=== PATIENT | female | born 1955 | race Caucasian/White ===

== ENCOUNTER 2020-01-29 09:38 | Outpatient (REF) | payer MEDICARE, MEDICAID, SELFPAY ==
[2020-01-29 11:37] LABS: Hematocrit 43.4 % (37-47); Hemoglobin 14.5 g/dl (12.0-16.0); Mean Corpuscular HGB Conc 33.4 g/dl (31.0-35.0); Mean Corpuscular Hemoglobin 31.7 pg (27.0-33.0); Mean Corpuscular Volume 94.8 fL (80-98); Platelet Count 285 X10*3/uL (160-400); Red Blood Count 4.58 X10*6/uL (4.20-5.50); Red Cell Distribution Width 12.3 % (11.0-16.0); White Blood Count 6.4 X10*3/uL (4.8-10.8)
[2020-01-29 11:56] LABS: Anion Gap 14 (12-20); Blood Urea Nitrogen 19 mg/dL (9-16); Calcium 9.9 mg/dL (8.4-10.2); Carbon Dioxide 29 mmol/L (22-29); Chloride 104 mmol/L (96-108); Cholesterol 184 mg/dL; Estimated Glomerular Filt Rate > 60; Glucose Fasting 101 mg/dL (60-99); HDL Cholesterol 57 mg/dL; LDL Cholesterol Calculated 105 mg/dl; Potassium 4.9 mmol/l (3.3-5.1); Sodium 142 mmol/L (135-145); Triglycerides 111 mg/dL
[2020-01-29 12:12] LABS: TSH reflex Free T4 1.67 mIU/mL (0.32-4.0); Vitamin D 25-OH Total 33.4 ng/mL (>30)
== END 2020-01-29 09:39 | disposition home or self-care (01) ==
LOC: HO.HMGCLDS 09:38
PROVIDERS: PCP Nurse Practitioner Family; Visit Provider Nurse Practitioner Family
DX: Z00.00 Encounter for general adult medical examination without abnormal findings (principal); G89.29 Other chronic pain; M25.561 Pain in right knee
CPT/HCPCS: 36415; 80048; 80061; 82306; 84443; 85027

== ENCOUNTER 2020-03-08 11:26 | Outpatient (REF) | payer MEDICARE, MEDICAID, SELFPAY ==
--- NOTE | 2020-03-08 11:35 | XR_ITS ---
EXAMINATION: XR KNEE, BILATERAL XR KNEE, RIGHT CLINICAL INFORMATION: Pain in right knee COMPARISON: 05/03/2019 TECHNIQUE: AP standing view of both knees. Lateral and sunrise views of the right knee. FINDINGS: Right knee: No fracture or subluxation. Mild medial compartment joint space narrowing. Small marginal osteophytes of the medial and patellofemoral compartments. This is similar to the previous study.There may be a small joint effusion. Left knee: No fracture or subluxation. Mild medial compartment narrowing noted. XR/XR knee RT 2V IMPRESSION: Mild degenerative changes at the medial and patellofemoral compartments of the right knee. There may be a small joint effusion.
--- NOTE | 2020-03-08 11:35 | XR_ITS ---
EXAMINATION: XR KNEE, BILATERAL XR KNEE, RIGHT CLINICAL INFORMATION: Pain in right knee COMPARISON: 05/03/2019 TECHNIQUE: AP standing view of both knees. Lateral and sunrise views of the right knee. FINDINGS: Right knee: No fracture or subluxation. Mild medial compartment joint space narrowing. Small marginal osteophytes of the medial and patellofemoral compartments. This is similar to the previous study.There may be a small joint effusion. Left knee: No fracture or subluxation. Mild medial compartment narrowing noted. XR/XR knee standing BI IMPRESSION: Mild degenerative changes at the medial and patellofemoral compartments of the right knee. There may be a small joint effusion.
== END 2020-03-08 11:27 | disposition home or self-care (01) ==
LOC: HO.HOSX 11:26
PROVIDERS: PCP Nurse Practitioner Family; Referring Provider Nurse Practitioner Family; Visit Provider Orthopaedic Surgery
DX: M25.561 Pain in right knee (principal); M25.562 Pain in left knee; I10 Essential (primary) hypertension
CPT/HCPCS: 73560; 73565; 99202

== ENCOUNTER 2020-05-10 12:26 | Outpatient (REF) | payer MEDICARE, MEDICAID, SELFPAY ==
--- NOTE | 2020-05-10 12:31 | MM_ITS ---
EXAMINATION: MM SCREENING DIGITAL BREAST TOMOSYNTHESIS, BILATERAL CLINICAL INFORMATION: Screening. Asymptomatic. The lifetime risk of breast cancer based on the Tyrer-Cuzick Model is 2%. COMPARISON: Mammography: 09/14/2018, 08/21/2017, 08/17/2016 TECHNIQUE: Digital breast tomosynthesis is performed in both the craniocaudal and mediolateral oblique views along with computer-aided detection (CAD). Synthesized 2D images are generated from the tomosynthesis. FINDINGS: There are scattered areas of fibroglandular density (ACR BI-RADS breast composition Category b). There are no significant masses, abnormal calcifications, or other abnormalities. Parenchymal pattern is similar to prior studies. No significant changes. MM/MM tomosynthesis screening BI IMPRESSION: No mammographic evidence of malignancy. ASSESSMENT: BI-RADS 1: Negative RECOMMENDATION: Routine annual mammography screening. This patient's information was entered into a reminder system with a target due date for their next mammogram.
== END 2020-05-10 12:27 | disposition home or self-care (01) ==
LOC: HO.MAMMO 12:26
PROVIDERS: PCP Nurse Practitioner Family; Visit Provider Nurse Practitioner Family
DX: Z12.31 Encounter for screening mammogram for malignant neoplasm of breast (principal)
CPT/HCPCS: 77063; 77067

== ENCOUNTER → 2020-07-24 11:16 | Outpatient (BNVA) | payer MEDICARE, MEDICAID, SELFPAY | PROVIDERS: PCP Nurse Practitioner Family; Visit Provider Urology | DX: N13.5 Crossing vessel and stricture of ureter without hydronephrosis (principal); N32.81 Overactive bladder | CPT/HCPCS: 81002; 99212 ==

== ENCOUNTER 2020-08-14 11:12 | Outpatient (REF) | payer MEDICARE, MEDICAID, SELFPAY ==
[2020-08-14 14:21] LABS: Alanine Aminotransferase 22 U/L (0-31); Albumin Level 4.4 g/dL (3.5-5.0); Alkaline Phosphatase 85 U/L (39-117); Anion Gap 15 (12-20); Aspartate Amino Transferase 20 U/L (5-31); Bilirubin Total 0.7 mg/dL (0.0-1.0); Blood Urea Nitrogen 19 mg/dL (9-16); Calcium 9.5 mg/dL (8.4-10.2); Carbon Dioxide 24 mmol/L (22-29); Chloride 105 mmol/L (96-108); Cholesterol 152 mg/dL; Estimated Glomerular Filt Rate > 60; Glucose Fasting 96 mg/dL (60-99); HDL Cholesterol 54 mg/dL; LDL Cholesterol Calculated 83 mg/dl; Potassium 4.4 mmol/L (3.3-5.1); Sodium 140 mmol/L (135-145); Total Protein 7.1 g/dL (6.5-8.0); Triglycerides 78 mg/dL
== END 2020-08-14 11:13 | disposition home or self-care (01) ==
LOC: HO.HMGCLDS 11:12
PROVIDERS: PCP Nurse Practitioner Family; Visit Provider Nurse Practitioner Family
DX: I10 Essential (primary) hypertension (principal)
CPT/HCPCS: 36415; 80053; 80061

== ENCOUNTER → 2020-11-07 10:19 | Outpatient (BNVA) | payer MEDICARE, MEDICAID, SELFPAY | PROVIDERS: PCP Nurse Practitioner Family; Visit Provider Obstetrics & Gynecology ==

== ENCOUNTER → 2020-12-12 10:13 | Outpatient (BNVA) | payer MEDICARE, MEDICAID, SELFPAY | PROVIDERS: PCP Nurse Practitioner Family; Visit Provider Advanced Practice Midwife | DX: S30.814A Abrasion of vagina and vulva, initial encounter (principal); W01.0XXA Fall on same level from slipping, tripping and stumbling without subsequent striking against object, initial encounter; Y93.9 Activity, unspecified; Y92.9 Unspecified place or not applicable; Y99.8 Other external cause status; Z88.8 Allergy status to other drugs, medicaments and biological substances; I10 Essential (primary) hypertension; Z91.018 Allergy to other foods | CPT/HCPCS: 99202; 99212 ==

== ENCOUNTER → 2021-01-09 13:04 | Outpatient (REF) | payer MEDICARE, MEDICAID, SELFPAY ==
--- NOTE | ~2021-01-09 | NM_ITS ---
EXAMINATION: NM KIDNEY IMAGING CLINICAL INFORMATION: Postsurgical changes right kidney with mild distended right collecting system. COMPARISON: CT abdomen and pelvis 12/04/2019. TECHNIQUE: Following intravenous administration of 10 mCi of Tc-99m DTPA, imaging over the posterior abdomen was obtained up to 30 minutes. At 30 minutes, 38 mg of Lasix was injected intravenously and further imaging was obtained up to an additional 29 minutes. FINDINGS: There is normal symmetrical perfusion seen on the 2 second per frame images up to 32 seconds. There is normal bilateral cortical uptake with progressive isotope accumulation in the right kidney pelvis. There is normal excretion of isotope in the left kidney. Post Lasix, there is slow excretion of activity within the right kidney pelvis with no obstruction. The left kidney excreted normally prior to Lasix. On the renogram curves, the split function is right kidney 34.6% and the left kidney 65.4%. Time from Lasix to half Lasix left kidney is 4.9 minutes and the right kidney is 12.4 minutes suggestive of slow excretion on the right but no obstruction. NM/NM renal flow w pharm int IMPRESSION: Normal bilateral renal perfusion. There is normal cortical uptake and excretion from the left kidney. Slight diminished right cortical uptake with slow progressive renal pelvic activity with mild dilation. Post Lasix, there is slow excretion of the right kidney isotope activity from the kidney pelvis without obstruction. Right kidney function is 34.6% and the left kidney function is 65.4%.
== END ==
LOC: HO.NUCMED 13:04
PROVIDERS: PCP Nurse Practitioner Family; Visit Provider Urology
DX: N13.5 Crossing vessel and stricture of ureter without hydronephrosis (principal)
CPT/HCPCS: 78708; A9539; J1940

== ENCOUNTER → 2021-01-22 11:14 | Outpatient (BNVA) | payer MEDICARE, MEDICAID, SELFPAY | PROVIDERS: PCP Nurse Practitioner Family | DX: N13.5 Crossing vessel and stricture of ureter without hydronephrosis (principal); N32.81 Overactive bladder | CPT/HCPCS: 51798; 99212 ==

== ENCOUNTER → 2021-04-04 15:24 | Outpatient (BNVA) | payer MEDICARE, MEDICAID, SELFPAY | PROVIDERS: PCP Nurse Practitioner Family | DX: N13.5 Crossing vessel and stricture of ureter without hydronephrosis (principal); N32.81 Overactive bladder | CPT/HCPCS: Q3014 ==

== ENCOUNTER 2021-06-04 11:22 | Outpatient (REF) | payer MEDICARE, MEDICAID, SELFPAY ==
--- NOTE | ~2021-06-04 | MM_ITS ---
EXAMINATION: MM SCREENING DIGITAL BREAST TOMOSYNTHESIS, BILATERAL CLINICAL INFORMATION: Screening. Asymptomatic. The lifetime risk of breast cancer based on the Tyrer-Cuzick Model is 2%. COMPARISON: Mammography: 05/10/2020, 09/14/2018, 08/21/2017 TECHNIQUE: Digital breast tomosynthesis is performed in both the craniocaudal and mediolateral oblique views along with computer-aided detection (CAD). Synthesized 2D images are generated from the tomosynthesis. FINDINGS: There are scattered areas of fibroglandular density (ACR BI-RADS breast composition Category b). There are no significant masses, abnormal calcifications, or other abnormalities. Parenchymal pattern is similar to prior studies. There is no developing density or architectural abnormality. The axilla and skin contours are unremarkable. No significant changes. MM/MM tomosynthesis screening BI IMPRESSION: No mammographic evidence of malignancy. ASSESSMENT: BI-RADS 1: Negative RECOMMENDATION: Routine annual mammography screening. This patient's information was entered into a reminder system with a target due date for their next mammogram.
== END 2021-06-04 11:23 | disposition home or self-care (01) ==
LOC: HO.MAMMO 11:22
PROVIDERS: PCP Nurse Practitioner Family; Visit Provider Nurse Practitioner Family
DX: Z12.31 Encounter for screening mammogram for malignant neoplasm of breast (principal)
CPT/HCPCS: 77063; 77067

== ENCOUNTER 2021-07-29 13:33 | Outpatient (REF) | payer MEDICARE, MEDICAID, SELFPAY ==
--- NOTE | ~2021-07-29 | XR_ITS ---
EXAMINATION: XR KNEE, LEFT CLINICAL INFORMATION: Sprain of left knee. Pain COMPARISON: None TECHNIQUE: Four views of the left knee. FINDINGS: Bones and soft tissues are normal. No fracture or joint effusion. Alignment is anatomic. Joint spaces are well maintained. No abnormal soft tissue calcification. XR/XR knee LT 4V IMPRESSION: Unremarkable left knee.
== END 2021-07-29 13:34 | disposition home or self-care (01) ==
LOC: HO.HMGCX 13:33
PROVIDERS: Visit Provider Internal Medicine
DX: S83.92XA Sprain of unspecified site of left knee, initial encounter (principal)
CPT/HCPCS: 73564

== ENCOUNTER 2021-10-29 09:58 | Outpatient (REF) | payer MEDICARE, MEDICAID, SELFPAY ==
[2021-10-29 11:35] LABS: MANUAL DIFF FLAG NO
[2021-10-29 11:40] LABS: Basophils Percent Auto 0.2 % (0-2); Eosinophils Absolute Auto 0.2 X10*3/uL (0.0-0.4); Hematocrit 45.8 % (37.0-47.0); Hemoglobin 15.2 g/dl (12.0-16.0); Lymphocytes Absolute Auto 4.2 X10*3/uL (1.2-4.9); Lymphocytes Percent Auto 40.3 % (20-40); Mean Corpuscular HGB Conc 33.2 g/dl (31.0-35.0); Mean Corpuscular Hemoglobin 30.9 pg (27.0-33.0); Mean Corpuscular Volume 93.1 fL (80.0-98.0); Mean Platelet Volume 9.4 fL (9.4-12.3); Monocytes Percent Auto 9.8 % (2-11); Neutrophils Absolute Auto 4.9 x10*3/uL (2.0-8.3); Neutrophils Percent Auto 46.7 % (45-73); Platelet Count 345 X10*3/uL (160-400); Red Blood Count 4.92 X10*6/uL (4.20-5.50); Red Cell Distribution Width 12.7 % (11.0-16.0); White Blood Count 10.4 X10*3/uL (4.8-10.8)
[2021-10-29 11:57] LABS: Alanine Aminotransferase 27 U/L (0-31); Albumin Level 4.7 g/dL (3.5-5.0); Alkaline Phosphatase 94 U/L (39-117); Anion Gap 14 (12-20); Aspartate Amino Transferase 14 U/L (5-31); Bilirubin Total 0.6 mg/dL (0.0-1.0); Blood Urea Nitrogen 24 mg/dL (9-16); Calcium 9.9 mg/dL (8.4-10.2); Carbon Dioxide 25 mmol/L (22-29); Chloride 105 mmol/L (96-108); Cholesterol 171 mg/dL; Estimated Glomerular Filt Rate > 60; Glucose Fasting 109 mg/dL (60-99); HDL Cholesterol 55 mg/dL; LDL Cholesterol Calculated 89 mg/dl; Potassium 4.6 mmol/L (3.3-5.1); Sodium 139 mmol/L (135-145); Total Protein 7.6 g/dL (6.5-8.0); Triglycerides 139 mg/dL
[2021-10-29 12:25] LABS: TSH reflex Free T4 2.08 uIU/mL (0.32-4.0); Vitamin D 25-OH Total 38.8 ng/mL (>30)
== END 2021-10-29 09:59 | disposition home or self-care (01) ==
LOC: HO.HMGCLDS 09:58
PROVIDERS: Visit Provider Nurse Practitioner Family
DX: Z00.00 Encounter for general adult medical examination without abnormal findings (principal); Z78.0 Asymptomatic menopausal state
CPT/HCPCS: 36415; 80053; 80061; 82306; 84443; 85025

== ENCOUNTER 2021-11-14 10:25 | Outpatient (REF) | payer MEDICARE, MEDICAID, SELFPAY ==
--- NOTE | ~2021-11-14 | MM_ITS ---
EXAMINATION: BONE DENSITOMETRY CLINICAL INDICATION: Asymptomatic menopausal state. COMPARISON: Previous BD dated 04/16/2016 and baseline BD dated 03/02/2008. TECHNIQUE: Using a GENELINK DXA System (software version: 13.1) manufactured by [employer], dual-energy x-ray absorptiometry was performed of the lumbar spine and left hip. The images are of good technical quality. Summary results are attached. FINDINGS: AP SPINE L1-L3 (excluding L4): The data of L1-L4 has been changed to exclude the L4 vertebral body, because degenerative sclerosis at this level may cause overestimation of lumbar spine density. Current: BMD 1.247 g/cm2, Z-score 1.8, T-score 0.6, normal, 3.6% increase from previous, 6.1% increase from baseline (<5% change is not significant). Prior: BMD 1.204 g/cm2. Baseline: BMD 1.175 g/cm2. LEFT FEMUR, NECK: Current: BMD 0.923 g/cm2, Z-score 0.4, T-score -0.8, normal. Prior: BMD 0.869 g/cm2. Baseline: BMD 0.836 g/cm2. LEFT FEMUR, TOTAL: Current: BMD 1.074 g/cm2, Z-score 1.4, T-score 0.5, normal, 9.4% increase from previous, 14.0% increase from baseline (<5% change is not significant). Prior: BMD 0.982 g/cm2. Baseline: BMD 0.942 g/cm2. IDENTIFIED RISK FACTORS: Height loss, low calcium intake, menopause, hysterectomy. HISTORY OF FRACTURE: None listed. MEDICATIONS: Calcium supplements or multivitamin, vitamin D. MM/XR DEXA axial skeleton IMPRESSION: 1. DIAGNOSIS: Normal bone density based on the lowest T-score value of -0.8 in the femoral neck applying World Health Organization criteria. 2. 10-YEAR FRACTURE RISK PREDICTION, FRAX: Major osteoporotic fracture (clinical spine, forearm, hip or shoulder) 7.4%. Hip fracture 0.4%. 3. Treatment Recommendations: NOF guidelines recommend consideration for treatment in postmenopausal women and men age 50 and older presenting with the following: -A hip or vertebral (clinical or morphometric) fracture. -T-score less than or equal to -2.5 at the femoral neck or spine after appropriate evaluation to exclude secondary causes. -Low bone mass at the hip or spine and a 10-year fracture probability by FRAX of greater than or equal to 3% for hip fracture or greater than or equal to 20% for major osteoporotic fracture based on the [place] adapted WHO algorithm. 4. Other Recommendations: All treatment decisions require clinical judgment and consideration of individual patient factors, including patient preferences, comorbidities, previous drug use, risk factors not captured in the FRAX model (e.g. frailty, falls, vitamin D deficiency, increased bone turnover, interval significant decline in bone density) and possible under or overestimation of fracture risk by FRAX. FUTURE SCAN RECOMMENDATION: People with diagnosed cases of osteoporosis or at high risk for fracture should have regular bone mineral density tests. For patients eligible for Medicare, routine testing is allowed once every 2 years. The testing frequency can be increased to one year for patients who have rapidly progressing disease, those who are receiving or discontinuing medical therapy to restore bone mass, or have additional risk factors.
== END 2021-11-14 10:26 | disposition home or self-care (01) ==
LOC: HO.MAMMO 10:25
PROVIDERS: PCP Nurse Practitioner Family; Visit Provider Nurse Practitioner Family
DX: Z13.820 Encounter for screening for osteoporosis (principal); Z78.0 Asymptomatic menopausal state
CPT/HCPCS: 77080

== ENCOUNTER 2021-11-25 08:25 | Outpatient (REF) | payer MEDICARE, MEDICAID, SELFPAY ==
[2021-11-25 11:21] LABS: Appearance Urine HAZY; Color Urine YELLOW; Glucose Urine UA NEG (NEG); Leukocyte Esterase Urine 1+ (NEG); Nitrite Urine NEG (NEG); Specific Gravity - Urine 1.025 (1.005-1.025); UACC Culture Trigger YES; Urine Blood 1+ (NEG); Urine Ketones NEG (NEG); Urine Protein NEG (NEG-TRACE)
[2021-11-25 11:41] LABS: Bacteria Urine TRACE /LPF; Squamous Epithelial Cell Urine 1+ /LPF
[2021-11-25 11:42] LABS: Amorphous Sediment Urine 3+ /LPF
== END 2021-11-25 08:26 | disposition home or self-care (01) ==
LOC: HO.HMGCLNP 08:25
PROVIDERS: Visit Provider Nurse Practitioner Family
DX: Z00.00 Encounter for general adult medical examination without abnormal findings (principal); R82.90 Unspecified abnormal findings in urine
CPT/HCPCS: 81001; 87086

== ENCOUNTER 2022-01-09 10:56 | Day surgery (SDC) | payer MEDICARE, MEDICAID, SELFPAY ==
[2022-01-06 10:47] VITALS: BMI 31.7
--- NOTE | 2022-01-08 12:58 | HO.ANESPROP2 ---
Documented by User: Elma Crocker NP 01/08/22 12:59 HPI - Anesthesia Eval Consult details Narrative: 66yo F for Colonoscopy PMFSH Active Problems Active Problems: All Active Problems (Updated 01/06/22 @ 10:42 by Sharri Bean, DARYN) Pain in right knee (Acute) Overactive bladder (Acute) UPJ obstruction, acquired (Acute) Sprain of left knee (Acute) Postmenopausal (Acute) Hypertension (Acute) Right knee pain (Acute) Physical exam (Acute) Past Medical History Medical History Hx of glaucoma Hypertension Polyp of left ear canal Right knee pain Family History Family History Father Stomach cancer Hypertension Mother Colon cancer Mental health disorder Son Mental health disorder Surgical History Surgical History H/O: hysterectomy History of kidney surgery History of partial hysterectomy History of tonsillectomy Social History Social History Alcohol intake: never Patient Tobacco Use Status: Never used Tobacco Advance Directives: No Advance Directives Information Provided: Yes Current occupational status: retired Current occupation: Right Handed Meds Allergies Allergy/AdvReac Type Severity Reaction Status Date / Time cortisone [CORTISONE] Allergy Intermediate HIVES Verified 10/29/21 10:45 hydrocortisone [Cortizone-10] Allergy Unknown hives Verified 10/29/21 10:45 Strawberries Allergy Unknown anaphylaxis Uncoded 10/29/21 10:45 Exam Exam Date and Time: January 08, 2022 1258 Height,Weight and Vital Signs: Height 5 ft 1.75 in Weight 78.018 kg Pertinent Lab Results Pertinent Lab Results: Laboratory Tests 10/29/21 10/29/21 10:05 10:05 WBC 10.4 Hgb 15.2 Hct 45.8 Plt Count 345 Sodium 139 Potassium 4.6 Chloride 105 Carbon Dioxide 25 BUN 24 H Creatinine 0.81 Assessment and Plan Assessment Anesthesia Assessment: Chart Reviewed Documented by User: Chan Valle MD 01/09/22 11:29 [facility] Past Medical History Medical History Hx of glaucoma Hypertension Polyp of left ear canal Right knee pain Family History Family History Father Stomach cancer Hypertension Mother Colon cancer Mental health disorder Son Mental health disorder Family history of problems with anesthesia: No Surgical History Surgical History H/O: hysterectomy History of kidney surgery History of partial hysterectomy History of tonsillectomy History of Problems with Anesthesia: No Social History Social History Alcohol intake: never Patient Tobacco Use Status: Never used Tobacco Advance Directives: No Advance Directives Information Provided: Yes Current occupational status: retired Current occupation: Right Handed Meds Allergies Allergy/AdvReac Type Severity Reaction Status Date / Time cortisone [CORTISONE] Allergy Intermediate HIVES Verified 10/29/21 10:45 hydrocortisone [Cortizone-10] Allergy Unknown hives Verified 10/29/21 10:45 Strawberries Allergy Unknown anaphylaxis Uncoded 10/29/21 10:45 Ex[address] Airway Mallampati Class: II TM Dist: >3cm Neck ROM: Full Loose/Missing/Broken Teeth: No Heart: [id number] Lungs: cta b/l Assessment and Plan Assessment Anesthesia Assessment: Anesthesia Plan Discussed Final Anesthetic Review Family History of Problems with Anesthesia: No History of Problems with Anesthesia: No NPO: Yes ASA Class: III Final Preanesthetic Review: No Changes in Pt Med Stat, Meds/Allgs Chart Reviewed, Consent Obtained/Reviewed and Anes Risks/Benef Reviewed Patient Risk: Intermediate Procedure Risk: Low Assessment/Block/Sedation in SS: Assess/Block/Sedation-SS Anesthetic Plan Anesthetic Plan: MAC: and Agree w/ Assess. and Plan Disposition: Standard PACU
[2022-01-09 11:40] VITALS: BP 142/93; PULSE 83; RESP 18; TEMP 36.6; O2SAT 96
[2022-01-09] MEDS: Lactated Ringers 1,000 ML 100 ML IVCONT (11:43)
[2022-01-09 13:04] VITALS: BP 87/55; PULSE 79; RESP 16; TEMP 36.1; O2SAT 95
--- NOTE | 2022-01-09 13:07 | PM.OP ---
Brief Operative Note Date of Service: 01/09/22 Pre-op diagnosis: Screening Post-op diagnosis: other (Polyps) Procedure: Colonoscopy to the cecum with hot snare polypectomy x 2 Surgeon: Juan Acevedo Anesthesia: MAC Was an Certified Composites Technician used for this Procedure?: No Estimated blood loss (mL): 2.0 Pathology: other (A. Transverse colon polyp B.Polyp at 50cm) Condition: stable Disposition: PACU
[2022-01-09 13:19] VITALS: BP 92/56; PULSE 75; RESP 15; TEMP 36.1; O2SAT 96
--- NOTE | 2022-01-10 15:47 | OP_ITS ---
SURGEON: Juan Acevedo MD INDICATIONS: The patient presents for evaluation of colorectal cancer screening, family history of colon cancer, and personal history of tubular adenoma of the colon. Full consent has been obtained from her for this, including risks of bleeding and perforation. PREOPERATIVE DIAGNOSIS: POSTOPERATIVE DIAGNOSIS: PROCEDURE PERFORMED: Colonoscopy to cecum with hot snare polypectomy x2. ESTIMATED BLOOD LOSS: COMPLICATIONS: ANESTHESIA: Preop medication used, monitored anesthesia care. ASSISTANTS: SPECIMENS: PREOPERATIVE DIAGNOSES: Family history of colon cancer, colorectal cancer screening, personal history of tubular adenoma of the colon. POSTOPERATIVE DIAGNOSES: Family history of colon cancer, colorectal cancer screening, personal history of tubular adenoma of the colon, colon polyps, diverticulosis, internal and external hemorrhoids. DESCRIPTION OF PROCEDURE: The patient was placed in the left lateral decubitus position. The digital rectal exam revealed some external hemorrhoidal tissue. The Iotera video pediatric colonoscope was entered into the rectum and advanced easily to the cecum. Once in the cecum, I did identify normal-appearing cecal pouch with appendiceal orifice and a normal-appearing ileocecal valve. There was transillumination of light deep in the right lower quadrant. The entire cecum and ileocecal valve appeared normal. The scope was slowly withdrawn assessing all mucosal surfaces carefully. Preparation was excellent. In the transverse colon, there was an approximately 8 mm polyp, which was removed by hot snare polypectomy and recovered by suction. The polypectomy site appeared clean, without any sign of residual polyp nor bleeding. At 50 cm, was an approximately 5 or 6 mm polyp, which was removed by hot snare polypectomy and recovered by suction. The polypectomy site appeared clean, without any sign of residual polyp nor bleeding. I did not visualize any other polyps, colitis, or angiodysplasia. There was a mild amount of sigmoid diverticulosis. In the rectum, scope was retroflexed visualizing internal hemorrhoids, but no other pathology. The rectal mucosa appeared normal. The scope was straightened and withdrawn from the patient. She tolerated the procedure well and was returned to recovery area in stable condition. IMPRESSION: 1. Colon polyps. 2. Diverticulosis. 3. Internal and external hemorrhoids. PLAN: The results of the pathology will be checked. I would recommend a repeat colonoscopy in 5 years for further screening. She was advised not to use any aspirin and NSAIDs for 1 week. MD SNOW Oliver/FELISHA / [id number]
== END 2022-01-09 15:57 | disposition home or self-care (01) ==
PROVIDERS: PCP Nurse Practitioner Family; Visit Provider Internal Medicine
PROC: 0DJD8ZZ Inspection of Lower Intestinal Tract, Via Natural or Artificial Opening Endoscopic (ICD-10-PCS; CPT 45378; principal; 2022-01-09 12:00)
DX: Z12.11 Encounter for screening for malignant neoplasm of colon (principal); Z86.010 Personal history of colon polyps; Z80.0 Family history of malignant neoplasm of digestive organs; D12.3 Benign neoplasm of transverse colon; D12.5 Benign neoplasm of sigmoid colon; K57.30 Diverticulosis of large intestine without perforation or abscess without bleeding; K64.8 Other hemorrhoids; K64.4 Residual hemorrhoidal skin tags; K59.00 Constipation, unspecified; R32 Unspecified urinary incontinence; I10 Essential (primary) hypertension; E78.5 Hyperlipidemia, unspecified; F41.8 Other specified anxiety disorders; J45.909 Unspecified asthma, uncomplicated; M81.0 Age-related osteoporosis without current pathological fracture; Z79.82 Long term (current) use of aspirin; Z87.442 Personal history of urinary calculi
CPT/HCPCS: 45385; 88305

== ENCOUNTER → 2022-01-15 12:55 | Outpatient (REF) | payer MEDICARE, MEDICAID, SELFPAY ==
--- NOTE | ~2022-01-15 | NM_ITS ---
EXAMINATION: RENAL DYNAMIC IMAGING STUDY CLINICAL INFORMATION: 66-year-old female with mildly distended right renal collecting system. 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 COMPARISON: Prior renal scan done with Lasix on 01/09/2021. TECHNIQUE: Serial gamma scintillation camera images were obtained over the posterior trunk during the initial transit and subsequent distribution of a bolus intravenous injection of 10 mCi Tc-99m (Sn)DTPA. No Lasix was administered per request. FINDINGS: Initial rapid sequence images show good perfusion to the kidneys. Sequential static images obtained up to 60 minutes post injection reveal good concentration. There is evidence of excretory function by 15 minutes post injection. There is visible accumulation of radioisotope urinary bladder by 20 minutes. There is a progressively clearance of radiotracer activity from the nondilated left renal pelvis while asymmetric prominent retention of radiotracer activity is noted within the extrarenal dilated left renal pelvis. On post void images, no evidence of any reflux present. The relative function of the two kidneys based on the 2-3 minute images are: Left 61.24%, previously 65.4%, and right 38.76%, previously 34.6%. NM/NM renal flow wo pharm int IMPRESSION: LEFT KIDNEY: Normal perfusion and excretion and no evidence of any obstruction, unchanged. RIGHT KIDNEY: Normal perfusion and excretion and persistent dilated extrarenal pelvis. Presence or absence of obstruction at the right pelviureteric junction was not evaluated since no Lasix was given.
== END ==
LOC: HO.NUCMED 12:55
PROVIDERS: PCP Nurse Practitioner Family
DX: N13.5 Crossing vessel and stricture of ureter without hydronephrosis (principal)
CPT/HCPCS: 78701; A9539

== ENCOUNTER 2022-06-10 10:30 | Outpatient (REF) | payer MEDICARE, MEDICAID, SELFPAY ==
--- NOTE | ~2022-06-10 | MM_ITS ---
EXAMINATION: MM SCREENING DIGITAL BREAST TOMOSYNTHESIS, BILATERAL CLINICAL INFORMATION: Screening. Asymptomatic. The lifetime risk of breast cancer based on the Tyrer-Cuzick Model is 2%. COMPARISON: Mammography: 10/02/2021, 05/10/2020, 09/14/2018 TECHNIQUE: Digital breast tomosynthesis is performed in both the craniocaudal and mediolateral oblique views along with computer-aided detection (CAD). Synthesized 2D images are generated from the tomosynthesis. FINDINGS: There are scattered areas of fibroglandular density (ACR BI-RADS breast composition Category b). There are no significant masses, abnormal calcifications, or other abnormalities. No architectural abnormality or developing density or significant change from prior studies. The axilla are unremarkable. No significant changes. MM/MM tomosynthesis screening BI IMPRESSION: No mammographic evidence of malignancy. ASSESSMENT: BI-RADS 1: Negative RECOMMENDATION: Routine annual mammography screening. This patient's information was entered into a reminder system with a target due date for their next mammogram.
== END 2022-06-10 10:31 | disposition home or self-care (01) ==
LOC: HO.MAMMO 10:30
PROVIDERS: PCP Nurse Practitioner Family; Visit Provider Nurse Practitioner Family
DX: Z12.31 Encounter for screening mammogram for malignant neoplasm of breast (principal)
CPT/HCPCS: 77063; 77067

== ENCOUNTER → 2022-09-04 10:50 | Outpatient (BNVA) | payer MEDICARE, MEDICAID, SELFPAY | PROVIDERS: PCP Nurse Practitioner Family; Visit Provider Urology | DX: N32.81 Overactive bladder (principal); N13.5 Crossing vessel and stricture of ureter without hydronephrosis | CPT/HCPCS: 99212 ==

== ENCOUNTER 2022-11-16 09:08 | Outpatient (AMB) | payer MEDICARE, MEDICAID, SELFPAY ==
--- NOTE | 2022-11-16 10:13 | MHC.OFFWIV ---
Intake Vital Signs 11/16/22 10:17 BP 132/80 Blood Pressure Location Rt brachial Position Sitting Pulse 63 Pulse Source Pulse Oximeter Temp 97.9 F Temp Source Oral Pulse Oximetry (%) 97 Oxygen Delivery Method Room Air Intake Visit Reasons: EST/both ears blocked Patient Tobacco Use Status: Never used Tobacco Allergies cortisone [CORTISONE] Allergy (Intermediate, Verified 11/16/22 10:15) HIVES hydrocortisone [Cortizone-10] Allergy (Unknown, Verified 11/16/22 10:15) hives Strawberries Allergy (Unknown, Uncoded 11/16/22 10:15) anaphylaxis HPI HPI Comments History of Present Illness Details 66-year-old female presents with bilateral ear pressure and blockage for the last week. States she has been trying to pull the water out of her ears by shaking her head, but has been unsuccessful at removing the fluid from her ear. PFSH Medical History Hx of glaucoma Hypertension Polyp of left ear canal Right knee pain Surgical History H/O: hysterectomy History of kidney surgery History of partial hysterectomy History of tonsillectomy Family History Father Stomach cancer Hypertension Mother Colon cancer Mental health disorder Son Mental health disorder Social History Alcohol intake: never Patient Tobacco Use Status: Never used Tobacco Current occupational status: retired 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 Reproductive History Menstrual Age of Menarche: 17 Review of Systems Const Details: Constitutional: No Fever, No Chills ENT/Mouth: Positive bilateral ear pressure, No Hoarseness, No sore throat Eyes: No Eye Pain, No Swelling, No Redness, No Foreign Body Cardiovascular: No Chest Pain, No SOB Respiratory: No Cough, No Dyspnea Gastrointestinal: No Nausea, No Vomiting, No Diarrhea, No abdominal Pain Genitourinary: No Dysuria, No Hematuria Musculoskeletal: No joint pain, No Myalgias, No Joint Swelling Skin: No Skin lacerations, No rash Neuro: No Weakness, No Dizziness, No Headache All systems reviewed & are unremarkable except as noted in HPI and below Physical Exam Vital Signs: Last Vital Signs Temp 97.9 F 11/16/22 10:17 Pulse 63 11/16/22 10:17 BP 132/80 11/16/22 10:17 Pulse Ox 97 11/16/22 10:17 Oxygen Delivery Method Room Air 11/16/22 10:17 Appearance: Alert. Oriented X3. No acute distress. ENT: Pharynx normal. Bilateral if fusions noted, tympanic membranes intact, no erythema to the membrane or canal. No mastoid tenderness. Neck: Normal inspection. Neck supple. No vertebral tenderness or step-offs. No nuchal rigidity. CVS: Normal heart rate and rhythm. Pulses normal. Respiratory: No respiratory distress. Breath sounds normal. Skin: Skin warm and dry. Normal skin color. Normal skin turgor. Extremities: Gait well balanced well coordinated. Neuro: No motor deficit. No sensory deficit. Cranial nerves 2-12 intact. Assessment & Plan Assessment & Plan (1) Acute middle ear effusion: Code(s): H65.199 - Other acute nonsuppurative otitis media, unspecified ear Plan: 66-year-old female presents with bilateral ear pressure and feeling like there is water inside of her ears. She does not report any pain, or fevers, and states that it sounds like an ocean is in her ears. Visual inspection indicates bilateral tympanic membrane effusions, no indication of infection or erythema. Tympanic membranes are intact. No mastoid tenderness. No pain on tragal pressure. No dizziness or weakness reported. Plan of care is to treat with decongestant, patient does take blood pressure medications, will prescribe Coricidin, and will treat with loratadine. Patient understands that she should use the medication that gives her the best results. Patient verbalized understanding of discharge instructions. Verbalized understandings of signs and symptoms indicating need for emergent intervention. Medications: New dextromethorphan-guaifenesin 10-200 mg (Coricidin HBP Chest Congestion-Cough) 1 tab-cap PO DAILY 15 caps 0RF cough 15 days loratadine 10 mg PO DAILY PRN 30 tabs 2RF Congestion symptoms 30 days Patient Instructions: You were evaluated for pressure in both ears. You have bilateral ear effusions. This is not infection. Take Coricidin daily as needed to help reduce congestion. Take loratadine as needed to help reduce congestion. Thank you for choosing this urgent care for evaluation. Please follow-up with primary care physician as needed. Return to the emergency department for any new, concerning, or worsening symptoms. Coding Level of Care Code Est Pt Level 3 (43441) Diagnoses Acute middle ear effusion H65.199
[2022-11-16 10:17] VITALS: BP 132/80; PULSE 63; TEMP 36.6; O2SAT 97
== END 2022-11-16 10:38 | disposition home or self-care (01) ==
PROVIDERS: PCP Nurse Practitioner Family; Visit Provider Nurse Practitioner Family
DX: H65.193 Other acute nonsuppurative otitis media, bilateral (principal)
CPT/HCPCS: 99213

== ENCOUNTER 2023-06-23 10:20 | Outpatient (REF) | payer MEDICARE, SELFPAY | END 2023-06-23 10:21 | disposition home or self-care (01) | LOC: HO.MAMMO 10:20 | PROVIDERS: PCP Nurse Practitioner Family; Visit Provider Nurse Practitioner Family | DX: Z12.31 Encounter for screening mammogram for malignant neoplasm of breast (principal) | CPT/HCPCS: 77063; 77067 ==

== ENCOUNTER → 2023-06-23 10:30 | Outpatient (BNV) | payer MEDICARE, SELFPAY | PROVIDERS: PCP Nurse Practitioner Family; Visit Provider Radiology Diagnostic Radiology | DX: Z12.31 Encounter for screening mammogram for malignant neoplasm of breast (principal) | CPT/HCPCS: 77063; 77067 ==

== ENCOUNTER → 2023-07-12 10:41 | Outpatient (BNVA) | payer MEDICARE, SELFPAY | PROVIDERS: PCP Nurse Practitioner Family; Visit Provider Surgery ==

== ENCOUNTER 2023-08-17 09:52 | Outpatient (REF) | payer MEDICARE, SELFPAY ==
--- NOTE | ~2023-08-17 | US_ITS ---
EXAMINATION: US RETROPERITONEAL LIMITED (RENAL ONLY) CLINICAL INFORMATION: Crossing vessel and stricture of ureter without hydronephrosis. COMPARISON: CT abdomen and pelvis 12/04/2019. Ultrasound abdomen complete 05/13/2017. Renal ultrasound 07/22/2015. TECHNIQUE: Real-time imaging of the kidneys. FINDINGS: RIGHT KIDNEY: 9.4 x 4.8 x 6.0 cm (SAG x AP x TRV). The kidney is normal in size and contour. Renal cortical thickness is normal. Parenchymal echogenicity is increased. No renal calculi or focal parenchymal lesions. Prominent renal pelvis again noted without intrarenal hydronephrosis. Cysts similar to the prior CT scan. LEFT KIDNEY: 11.2 x 6.5 x 5.6 cm (SAG x AP x TRV). The kidney is normal in size and contour. Parenchymal echogenicity is increased Renal cortical thickness is normal. No calculi or focal parenchymal lesions. No hydronephrosis. US/US renal BI IMPRESSION: Stable prominence of the right renal pelvis without intrarenal hydronephrosis. Echogenic renal parenchyma consistent with chronic medical renal disease.
== END 2023-08-17 09:53 | disposition home or self-care (01) ==
LOC: HO.HMGCX 09:52
PROVIDERS: PCP Nurse Practitioner Family; Visit Provider Urology
DX: N13.5 Crossing vessel and stricture of ureter without hydronephrosis (principal)
CPT/HCPCS: 76775

== ENCOUNTER 2023-08-23 09:42 | Outpatient (AMB) | payer MEDICARE, SELFPAY ==
--- NOTE | 2023-08-23 09:49 | A.OFFVIS_ITS ---
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 Allergies cortisone [CORTISONE] Allergy (Intermediate, Verified 08/23/23 10:04) HIVES hydrocortisone [Cortizone-10] Allergy (Unknown, Verified 08/23/23 10:04) hives Strawberries Allergy (Unknown, Uncoded 08/23/23 10:04) anaphylaxis Medication List - Last Reconciled 08/23/23 by PETRA Vargas albuterol sulfate 90 mcg/actuation 2 puffs inhalation Q4H PRN 30 days aspirin 81 mg PO DAILY atorvastatin 20 mg PO DAILY 90 days buspirone 10 mg (2 x 5 mg) PO BID 90 days calcium carbonate 600 mg PO BID cholecalciferol (vitamin D3) 50 mcg PO DAILY docusate sodium 100 mg PO DAILY epinephrine 0.3 mL IM DIRECTED fluconazole 150 mg PO Q3D 2 doses loratadine 10 mg PO DAILY PRN 30 days mecobalamin (vitamin B12) 1,000 mcg PO DAILY meloxicam 15 mg PO DAILY PRN metoprolol succinate ER 50 mg PO DAILY 90 days tolterodine ER 4 mg PO DAILY 90 days HPI Comments Details: Pt is here to start the [facility] [place] [facility] Weight Management medical weight loss program. Her goal is to lose weight and achieve a healthy lifestyle as well as to improve, if not resolve, obesity related medical conditions, including hypertension, hype rcholesterolemia, arthritis. She reports first being concerned about her weight 4 years, highest weight to date was 179.8. Current weight is 165.8 pounds with a BMI of 31.3. She has tried multiple methods of weight loss including fad diets without permanent results. She lives with her 2 sons. She does not work. She wakes at:?6 am, and goes to bed at?10 pm. Dinner is at 5 pm. Breakfast: skip AM snack: skip Lunch: skip or apple, banana or burger or hot dog w no bun PM snack: broccoli or carrots, celery w cream cheese and oilves or raisons Dinner: skip or mashed potatoes, veg, pot roast After dinner: grapes Other snacks: ho-hos, ring-dings, chips, tuvaluan fries Liquids: 96 oz water, 12 oz soda 2 x per week, no juice Alcohol/marijuana/tobacco intake: none Exercise: walk outside/treadmill 2-3 x times per week for 1 mile, 1-5 lb weight training, stationary bike, elliptical GERD score: 0 BAKARI score: 6 ESS score: 3 QOL score: 80 PFSH Medical History Hx of glaucoma Hypertension Polyp of left ear canal Right knee pain Surgical History H/O: hysterectomy History of partial hysterectomy History of kidney surgery History of tonsillectomy Family History Father Stomach cancer Hypertension Mother Colon cancer Mental health disorder Son Mental health disorder Social History Alcohol intake: never Patient Tobacco Use Status: Never used Tobacco Current occupational status: retired 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 Reproductive History Menstrual Age of Menarche: 17 Physical Exam Vital Signs: Last Vital Signs Temp 96.1 F L 08/23/23 09:58 Pulse 64 08/23/23 09:58 BP 171/82 H 08/23/23 09:58 Pulse Ox 95 08/23/23 09:58 Oxygen Delivery Method Room Air 08/23/23 09:58 BMI result Body Mass Index 31.3 Const General: cooperative, healthy appearing and no acute distress Orientation/consciousness: patient oriented x3 HEENT Head: Yes normal to inspection Ears: hearing grossly normal bilaterally General nose exam: Normal external nose present Face and sinus: Yes normal facial exam Eyes General: appearance normal, both eyes and all related structures Resp Effort & Inspection: normal respiratory effort Auscultation: clear to auscultation bilaterally Cardio Rate: regular rate Rhythm: regular rhythm Heart sounds: S1 normal heart sound present and S2 normal heart sound present GI Inspection: Yes normal to inspection, No distended and Yes obesity Palpation (GI): Soft to palpation, nontender and no guarding Auscultation: normal bowel sounds Skin General skin exam: no rashes or lesions noted Neuro General: patient oriented x3 Extrem General: No edema Psych Appearance: grossly normal Mental Status: mental status grossly normal Speech and movement: Normal speech and movement present Affect: normal affect Attitude: cooperative Assessment & Plan Assessment & Plan (1) Obesity (BMI 30-39.9): Code(s): E66.9 - Obesity, unspecified Category: Medical Plan: This is a?67 yo female who will start our MWL program to prepare for bariatric surgery.? We will have her start the meal plan and exercise plan as listed below and follow-up in the office in 4-5 weeks. ? Adequate sleep of 7-8 hours per night discussed, awakening at 6 am and going to bed around 10 pm ? Purchase body composition analyzer scale (Partho recommended) and check weight weekly. The best time to do this is first thing in the morning after going to the bathroom. 1. Nutritional counseling: Be sure to careful read the number of scoops per shake Start with 2 shakes ([facility] [employer], [employer], [facility]), (1 scoop in 8 oz unsweetened almond milk each) First shake at 7am-9am, Second shake at 11am-1pm 2 protein bars (FittingRoomrate bars at [facility] [employer], [employer], [facility]) First bar at 2pm-4pm. Dinner at 5pm (6 forks of protein and 6 forks of salad/vegetables). Meal to include lean meat (beef, fish, pork, turkey, chicken), cooked vegetables or a salad with olive oil and/or fruits (berries, pears, apples, kiwi). Avoid salt, breads, potatoes, rice, pasta, desserts. Another bar at 7pm-9pm. Try to drink 64 oz of water daily and avoid soda and juices. ?2. Each shake would be drunk slowly, like coffee in a period of 2 hours. ?3. Cut each bar in 4 pieces and eat each piece in 30 min ?to make each bar last 2 hours. ?4. I emphasized the importance of measuring accurately the food portion and measure it carefully when serving the food on the plate ?5. The meal portions include 6 full-size forks of meat and 6 full-size forks of salad. You always eat the meat portion but you can replace up to half of the forks of salad/vegetables with rice, potatoes or pasta, or a fruit ?if you like. The less you do it the better weight loss will be. ?6. One full-size fork is what can be scooped on the fork without falling aside and not what can be bit with the fork. Use regular forks like those you find in a typical restaurant. ?7.? Please send me weight measurements as soon as possible and then once a week. Always include your diet and exercise plan. Alternatively come weekly at the office for weight checks and send me the measurements. ?8. Exercise counseling: Begin by watching a stretching for beginners video. Start slowly and begin to stretch your muscles. You should do this before and after each exercise session to prevent injury. You have access to multiple [facility] es of equiptment. Treadmill seems to work best for you to avoid knee swelling and pain. Start treadmill with a speed of 3.0 and incline of 0, increasing incline by 1 every 3 minutes to the highest comfortable level (max 6 for now) then decrease in the same fashion. Repeat process to a goal of 300 calories. Alternatively you can start elliptical with a resistance of 2. Increase resistance by 1 every 3 min to your most comfortable resistance with a max resistance of 8. Reduce the resistance by 1 every 3 minutes back down to 2 and repeat cycles for about 10-15 minutes avoiding knee pain. Stop as soon as you begin to feel any discomfort in your knee. Goal of 2000 calories burned or more weekly. You may also consider use of the stationary bike. The easiest would be to chose the fat-burn or interval training program on the machine and do this until you reach the 300 calorie goal. Alternatively, you can manually adjust the resistance in a similar fashion as mentioned above, (resistance of 2-8 with a goal speed of 12 mph). Tracking calories is essential. 9. Alternatively start walking outside daily, tracking calories with a goal of 300 calories per day, daily. You can download the tiffani Smartpay which can track your time, distance and calories while walking outside. You press start in the tiffani when you start and then stop when you are finished. 10.? It is important to communicate by text weekly 11. Discussed and answered all questions regarding?obtained consent to participate in the [facility]?Registry. 12. Please follow the diet plan exactly, without any change. If you do not like something about the plan or you feel hungry, you need to communicate with me so I can help you revise the plan. You should not change the plan yourself. Text me at [phone] 13. Goal is to lose at least 8-10 pounds in the first month Patient is morbidly obese and is not considered stable at this time.?I spent a total of 70 minutes reviewing/updating records, examining the patient and counseling the patient on weight management as detailed above.
[2023-08-23 09:58] VITALS: BP 171/82; PULSE 64; TEMP 35.6; O2SAT 95; BMI 31.3
== END 2023-08-23 10:46 | disposition home or self-care (01) ==
PROVIDERS: PCP Nurse Practitioner Family; Visit Provider Physician Assistant Surgical
DX: E66.9 Obesity, unspecified (principal)
CPT/HCPCS: 99205

== ENCOUNTER → 2023-08-23 09:42 | Outpatient (BNVA) | payer MEDICARE, SELFPAY | PROVIDERS: PCP Nurse Practitioner Family; Visit Provider Physician Assistant Surgical | DX: E66.9 Obesity, unspecified (principal); Z68.31 Body mass index [BMI] 31.0-31.9, adult | CPT/HCPCS: 99202 ==

== ENCOUNTER 2023-09-10 09:59 | Outpatient (AMB) | payer MEDICARE, SELFPAY ==
--- NOTE | 2023-09-10 09:59 | A.OFFVIS_ITS ---
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 Allergies cortisone [CORTISONE] Allergy (Intermediate, Verified 09/10/23 10:00) HIVES hydrocortisone [Cortizone-10] Allergy (Unknown, Verified 09/10/23 10:00) hives Strawberries Allergy (Unknown, Uncoded 08/23/23 10:04) anaphylaxis Medication List - Last Reconciled 09/10/23 by Hilario Cruz MD albuterol sulfate 90 mcg/actuation 2 puffs inhalation Q4H PRN 30 days aspirin 81 mg PO DAILY atorvastatin 20 mg PO DAILY 90 days buspirone 10 mg (2 x 5 mg) PO BID 90 days calcium carbonate 600 mg PO BID cholecalciferol (vitamin D3) 50 mcg PO DAILY docusate sodium 100 mg PO DAILY epinephrine 0.3 mL IM DIRECTED fluconazole 150 mg PO Q3D 2 doses loratadine 10 mg PO DAILY PRN 30 days mecobalamin (vitamin B12) 1,000 mcg PO DAILY meloxicam 15 mg PO DAILY PRN metoprolol succinate ER 50 mg PO DAILY 90 days oxybutynin chloride ER 10 mg PO DAILY 30 days tolterodine ER 4 mg PO DAILY 90 days HPI Comments Details: Gemma Simeon is a very pleasant female. She is a patient of Dr. Suresh. She is seen for the following urologic conditions. - hydronephrosis - urinary urgency Yearly review Imaging normal Does wake 4-5 times at night Previously discussed Botox Will try oxybutynin 10 mg since no longer responsive to prior meds May benefit from Botox versus InterStim Overactive bladder Failed to respond to oxybutynin, Myrbetriq, tolterodine Hydronephrosis/Hydroureter Hydronephrosis was diagnosed through routine imaging 06/13 - recurrent pain on right, prior UPJ repair 32 years ago 07/11 laser of right UPJ narrowing. Relevant past medical history Nephrolithiasis No Urinary tract infections No Ureteropelvic Junction obstruction Yes Repair at 23 yr old Laser of re-stricture 07/11 right side Ureteric stricture No Vesicoureteral reflux No Anatomic imaging findings include 06/13 , CT with, hydronephrosis, on the right 05/15 stable. Functional imaging 06/13 , with diuretic renogram - good uptake - t 1/2 R 18 min, L 3min 09/10 , with diuretic renogram - good uptake, t 1/2 bilateral < 6 min 04/12 L 40:60 - t 1/2 7 min. - 01/14 left 65, right 35 - T half right 12 - prolonged but no obstruction - 01/15 left 60, right 40, no evidence of obstruction Laboratory results 06/13 , Creatinine 0.75 04/12 0.8 05/15 Cr 0.74 11/12 0.8. 08/14 0.8. 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 Reproductive History Menstrual Age of Menarche: 17 Review of Systems Const Denies chills and Denies fever(s) Card Reports no additional complaints and Denies syncope Resp Denies cough GI Denies abdominal pain and Denies heartburn Reports as per HPI and Denies change in libido Neuro Denies syncope Psych Denies change in libido Endo Denies change in libido Physical Exam Const General: cooperative, healthy appearing, comfortable and no acute distress Orientation/consciousness: patient oriented x3 HEENT Face and sinus: Yes normal facial exam Mouth: moist mucous membranes Neck Neck: Yes normal visual inspection, Yes full ROM and Yes trachea midline Chest Chest palpation & inspection: normal inspection of the chest Resp Effort & Inspection: normal respiratory effort, able to speak in complete sentences and no respiratory distress GI Inspection: Yes normal to inspection Back/Spine/Pelvis Cervical Spine: normal cervical lordosis Thoracic/Lumbar Spine: thoracic and lumbar spine normal to inspection Skin General skin exam: no rashes or lesions noted Neuro General: patient oriented x3, gait normal, tone normal and moves all extremities Extrem General: Yes normal to inspection and Yes capillary refill normal Telehealth Telehealth Telehealth Platform: Telephone Location of provider rendering services: practice address Location of patient: address on file Patient Identification confirmed using: Name, : Yes Telehealth method: voice only Patient verbally consented to treatment: Yes Patient verbally consented to billing insurance company: Yes Patient informed of any privacy concerns related to visit: Yes Assessment & Plan Assessment & Plan (1) Overactive bladder: Code(s): N32.81 - Overactive bladder Category: Medical (2) UPJ obstruction, acquired: Code(s): N13.5 - Crossing vessel and stricture of ureter without hydronephrosis Category: Medical Plan 2 month follow-up Medications: New oxybutynin chloride ER 10 mg PO DAILY 30 tabs 1RF 30 days N32.81 - Overactive bladder Patient Instructions: Imaging studies, laboratory and physical exam results were discussed and reviewed in detail. No major barriers to patient understanding were identified. An opportunity to ask questions regarding the treatment plan was provided. All questions were answered. The patient expressed understanding and agreement with the above treatment plan. The patient is aware they should contact our office by phone for worsening of their current condition or the appearance of new urologic symptoms. Compliance is encouraged with any medications and followup testing that is ordered. It is a privilege to participate in the urologic care of your patient. If you have any questions or concerns regarding treatment for the above conditions, or other urologic issues, please do not hesitate to contact me. The office telephone contact is [phone]. This note is constructed using voice recognition software. While every effort has been made to ensure accuracy monogram technician errors may have been included. Yours sincerely, Dr Hilario Cruz MD, [facility] - Urology Providers of Expert, Compassionate Care for the Genitourinary System Coding Level of Care Code Est Pt Level 4 (39691) Diagnoses Overactive bladder N32.81 UPJ obstruction, acquired N13.5
== END 2023-09-10 11:22 | disposition home or self-care (01) ==
LOC: HO.HUSH 09:59
PROVIDERS: PCP Nurse Practitioner Family; Visit Provider Urology
DX: N32.81 Overactive bladder (principal); N13.5 Crossing vessel and stricture of ureter without hydronephrosis
CPT/HCPCS: 99214

== ENCOUNTER → 2023-09-10 09:59 | Outpatient (BNVA) | payer MEDICARE, SELFPAY | PROVIDERS: PCP Nurse Practitioner Family; Visit Provider Urology | DX: N32.81 Overactive bladder (principal); N13.5 Crossing vessel and stricture of ureter without hydronephrosis | CPT/HCPCS: 99212 ==

== ENCOUNTER 2023-12-15 08:12 | Outpatient (AMB) | payer MEDICARE, SELFPAY ==
--- NOTE | 2023-12-15 08:20 | AM.OFFWIN_ITS ---
Intake Vital Signs 12/15/23 08:21 Height 5 ft 1 in Weight 167 lb BMI 31.6 BP 132/94 H Blood Pressure Location Lt brachial Position Sitting Pulse 66 Pulse Source Pulse Oximeter Temp 98.2 F Temp Source Oral Pulse Oximetry (%) 98 Oxygen Delivery Method Room Air Intake Visit Reasons: EP- Patient has red spots all over body Intake Note: pt c/o red spots all over body. Started 11 days ago Patient Tobacco Use Status: Never used Tobacco Allergies cortisone [CORTISONE] Allergy (Intermediate, Verified 12/15/23 08:20) HIVES hydrocortisone [Cortizone-10] Allergy (Unknown, Verified 12/15/23 08:20) hives Strawberries Allergy (Unknown, Uncoded 12/15/23 08:20) anaphylaxis Do you need a note to return to daycare/school/sports/work: No HPI HPI Comments History of Present Illness Details Patient is a 68-year-old female complaining of red itchy bumps all over her body for the last 11 days. She says the bumps seemed to be spreading. She tries to cover them because there was fluid leaking out of them and she thinks it is with spreading through the fluid. She has been using a [id number] cortisone cream that the pharmacist told her to use which brings mild relief of the itching. She states she was clearing some brush about 12 days ago and she is thinking she got poison dayana or poison sumac from the brush. 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 Reproductive History Menstrual Age of Menarche: 17 Review of Systems Const All systems reviewed & are unremarkable except as noted in HPI and below Physical Exam Vital Signs: Last Vital Signs Temp 98.2 F 12/15/23 08:21 Pulse 66 12/15/23 08:21 BP 132/94 H 12/15/23 08:21 Pulse Ox 98 12/15/23 08:21 Oxygen Delivery Method Room Air 12/15/23 08:21 BMI result Body Mass Index 31.6 Const General: cooperative, healthy appearing, comfortable and no acute distress Orientation/consciousness: patient oriented x3 Limitations: no limitations HEENT Head: Yes normal to inspection Eyes General: appearance normal, both eyes and all related structures Resp Effort & Inspection: normal respiratory effort and able to speak in complete sentences Skin Other: A streaky, linear maculopapular rash with crusted lesions on right upper extremity as well as a few spots on both lower extremities and her left arm, below her left breast and on her abdomen. Neuro General: patient oriented x3 Assessment & Plan Assessment & Plan (1) Allergic dermatitis: Code(s): L23.9 - Allergic contact dermatitis, unspecified cause Plan: Gave 1st dose in office and sent 10 day taper of prednisone to patient's pharmacy. Educated patient on how to care for herself/clothes as well as not spreading the poison dayana further Plan See above Orders: Orders AMB Prednisone Adult Dose Today L23.9 - Allergic contact dermatitis, unspecified cause Medications: New prednisone 20 mg PO ONCE 2 tabs 0RF L23.9 - Allergic contact dermatitis, unspecified cause prednisone On days 1&2, take 3 tablets with breakfast. On days 3&4 take 2 tablets with breakfast, on days 5&6 take 1.5 tablets with breakfast, on days 7&8 take 1 tablet with breakfast, on days 9&10 take 0.5 tablet with breakfast. 20 mg PO DAILY 16 tabs 0RF hydroxyzine HCl 10 mg PO QID PRN 10 tabs 0RF itching Coding Level of Care Code Est Pt Level 3 (94433) Diagnoses Allergic dermatitis L23.9
[2023-12-15 08:21] VITALS: BP 132/94; PULSE 66; TEMP 36.8; O2SAT 98; BMI 31.6
== END 2023-12-15 08:48 | disposition home or self-care (01) ==
PROVIDERS: PCP Nurse Practitioner Family; Visit Provider Physician Assistant
DX: L23.9 Allergic contact dermatitis, unspecified cause (principal)
CPT/HCPCS: 99213

== ENCOUNTER 2024-01-25 13:01 | Outpatient (AMB) | payer MEDICARE, MEDICAID, SELFPAY ==
--- NOTE | 2024-01-25 13:18 | A.OFFVIS_ITS ---
Intake Visit Reasons: Med Review(Oxybutynin) Intake Note: Patient is present for med review Urology Medication:oxybutynin Antibiotic Allergy:none Blood Thinner:aspirin Irrigation Equipment Remover Required: No Allergies cortisone [CORTISONE] Allergy (Intermediate, Verified 01/25/24 13:21) HIVES hydrocortisone [Cortizone-10] Allergy (Unknown, Verified 01/25/24 13:21) hives Strawberries Allergy (Unknown, Uncoded 01/25/24 13:21) anaphylaxis HPI Comments Details: Gemma Simeon is a very pleasant female. She is a patient of Dr. Suresh. She is seen for the following urologic conditions. 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 Relevant past medical history Nephrolithiasis No Urinary tract infections No Ureteropelvic Junction obstruction Yes Repair at 23 yr old Laser of re-stricture 07/11 right side Ureteric stricture No Vesicoureteral reflux No Anatomic imaging findings include 06/13 , CT with, hydronephrosis, on the right 05/15 stable. Functional imaging 06/13 , with diuretic renogram - good uptake - t 1/2 R 18 min, L 3min 09/10 , with diuretic renogram - good uptake, t 1/2 bilateral < 6 min 04/12 L 40:60 - t 1/2 7 min. - 01/14 left 65, right 35 - T half right 12 - prolonged but no obstruction - 01/15 left 60, right 40, no evidence of obstruction Laboratory results 06/13 , Creatinine 0.75 04/12 0.8 05/15 Cr 0.74 11/12 0.8. 08/14 0.8. 11/14 0.8 Therapeutic plan - continue with intermittent surveillance [facility] Medical History Hx of glaucoma Hypertension Polyp of left ear canal Right knee pain Surgical History H/O: hysterectomy History of partial hysterectomy History of kidney surgery History of tonsillectomy Family History Father Stomach cancer Hypertension Mother Colon cancer Mental health disorder Son Mental health disorder Social History Alcohol intake: never Patient Tobacco Use Status: Never used Tobacco Current occupational status: retired 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 Reproductive History Menstrual Age of Menarche: 17 Review of Systems Const Denies chills and Denies fever(s) Card Reports no additional complaints and Denies syncope Resp Denies cough GI Denies abdominal pain and Denies heartburn Reports as per HPI and Denies change in libido Neuro Denies syncope Psych Denies change in libido Endo Denies change in libido Physical Exam Const General: cooperative, healthy appearing, comfortable and no acute distress Orientation/consciousness: patient oriented x3 HEENT Face and sinus: Yes normal facial exam Mouth: moist mucous membranes Neck Neck: Yes normal visual inspection, Yes full ROM and Yes trachea midline Chest Chest palpation & inspection: normal inspection of the chest Resp Effort & Inspection: normal respiratory effort, able to speak in complete sentences and no respiratory distress GI Inspection: Yes normal to inspection Back/Spine/Pelvis Cervical Spine: normal cervical lordosis Thoracic/Lumbar Spine: thoracic and lumbar spine normal to inspection Skin General skin exam: no rashes or lesions noted Neuro General: patient oriented x3, gait normal, tone normal and moves all extremities Extrem General: Yes normal to inspection and Yes capillary refill normal Results AMB Urinalysis, Automated UA Leukoctes 0 Flor/uL Last Edit by HARMAN Carrasco on 01/25/24 13:32 UA Nitrite Negative Last Edit by HARMAN Carrasco on 01/25/24 13:32 UA Urobilinogen 0.2 mg/dL Last Edit by HARMAN Carrasco on 01/25/24 13:3 2 UA Protein 15 mg/dL Last Edit by HARMAN Carrasco on 01/25/24 13:32 UA pH 5.5 Last Edit by HARMAN Carrasco on 01/25/24 13:32 UA Blood 10 Subhash/uL Last Edit by HARMAN Carrasco on 01/25/24 13:32 UA Specific [place] 1.030 Last Edit by HARMAN Carrasco on 01/25/24 13: 32 UA Ketone Negative Last Edit by HARMAN Carrasco on 01/25/24 13:32 UA Bilirubin 0 mg/dL Last Edit by HARMAN Carrasco on 01/25/24 13:32 UA Glucose 0 mg/dL Last Edit by HARMAN Carrasco on 01/25/24 13:32 Results Reviewed Results Reviewed: Laboratory Last Values Urine pH (Auto) 5.5 01/25/24 13:31 Specific [place] (Auto) 1.030 01/25/24 13:31 Urine Protein (Auto) 15 mg/dL 01/25/24 13:31 Glucose (UA)(Auto) 0 mg/dL 01/25/24 13:31 Urine Ketones (Auto) Negative 01/25/24 13:31 Urine Blood (Auto) 10 Subhash/uL 01/25/24 13:31 Urine Nitrite (Auto) Negative 01/25/24 13:31 Urine Bilirubin (Auto) 0 mg/dL 01/25/24 13:31 Urine Urobilinogen (Auto) 0.2 mg/dL 01/25/24 13:31 Leukocyte Esterase (Auto) 0 Flor/uL 01/25/24 13:31 Assessment & Plan Assessment & Plan (1) Overactive bladder: Code(s): N32.81 - Overactive bladder Category: Medical Plan Trial Toviaz 8 mg Orders: Orders AMB Urinalysis Automated Today Z13.9 - Encounter for screening, unspecified Medications: New fesoterodine ER 8 mg PO DAILY 30 days 30 tabs 1RF N32.81 - Overactive bladder, N40.0 - Benign prostatic hyperplasia without lower urinary tract symptoms Discontinued tolterodine ER Discontinued Reason: Patient Completed Course 4 mg PO DAILY 90 days 90 caps 2RF N31.8 - Other neuromuscular dysfunction of bladder, N32.81 - Overactive bladder, N40.0 - Benign prostatic hyperplasia without lower urinary tract symptoms Patient Instructions: Imaging studies, laboratory and physical exam results were discussed and reviewed in detail. No major barriers to patient understanding were identified. An opportunity to ask questions regarding the treatment plan was provided. All questions were answered. The patient expressed understanding and agreement with the above treatment plan. The patient is aware they should contact our office by phone for worsening of their current condition or the appearance of new urologic symptoms. Compliance is encouraged with any medications and followup testing that is ordered. It is a privilege to participate in the urologic care of your patient. If you have any questions or concerns regarding treatment for the above conditions, or other urologic issues, please do not hesitate to contact me. The office t elephone contact is [phone]. This note is constructed using voice recognition software. While every effort has been made to ensure accuracy catering cook errors may have been included. Yours sincerely, Dr Hilario Cruz MD, [facility] - Urology Providers of Expert, Compassionate Care for the Genitourinary System Coding Level of Care Code Est Pt Level 4 (23067) Diagnoses Overactive bladder N32.81
== END 2024-01-25 13:50 | disposition home or self-care (01) ==
PROVIDERS: PCP Nurse Practitioner Family; Visit Provider Urology
DX: Z13.9 Encounter for screening, unspecified (principal); N32.81 Overactive bladder
CPT/HCPCS: 99214

== ENCOUNTER → 2024-01-25 13:01 | Outpatient (BNVA) | payer MEDICARE, SELFPAY | PROVIDERS: PCP Nurse Practitioner Family; Visit Provider Urology | DX: N32.81 Overactive bladder (principal); N13.30 Unspecified hydronephrosis | CPT/HCPCS: 81003; 99212 ==

== ENCOUNTER 2024-03-13 09:01 | Outpatient (AMB) | payer MEDICARE, SELFPAY ==
[2024-03-13 09:03] VITALS: BP 138/90; PULSE 80; O2SAT 96; BMI 31.2
--- NOTE | 2024-03-13 09:03 | A.OFFVIS_ITS ---
Intake Vital Signs 03/13/24 09:03 03/13/24 09:46 Height 5 ft 1 in Weight 165 lb BMI 31.2 BP 138/90 H 132/80 Blood Pressure Location Rt brachial Lt brachial Position Sitting Sitting Pulse 80 Pulse Source Pulse Oximeter Pulse Oximetry (%) 96 Oxygen Delivery Method Room Air Intake Visit Reasons: AWV Intake Note: pt is here MWV Tenoner Operator Required: No Accompanied by: Self / Same As Patient Allergies cortisone [CORTISONE] Allergy (Intermediate, Verified 03/13/24 09:06) HIVES hydrocortisone [Cortizone-10] Allergy (Unknown, Verified 03/13/24 09:06) hives Strawberries Allergy (Unknown, Uncoded 01/25/24 13:21) anaphylaxis Do you need a note to return to daycare/school/sports/work: No HPI AWV HPI Details Pt is here for an AWV. Denies fever, chills, and dizziness. [place] of care in scan pile. PPP will be scanned in chart and copy will be given to pt. Refuses flu and pneumonia vaccine. Informed pt that she can obtain her RSV and shingles vaccines at her pharmacy. HPI Comments History of Present Illness Details HTN: Blood pressure is managed with metoprolol 50mg. Will order labs. Denies chest pain, shortness of breath, headache, dizziness, and blurred vision. PFSH Medical History Hx of glaucoma Right knee pain Polyp of left ear canal Hypertension Surgical History H/O: hysterectomy History of partial hysterectomy History of kidney surgery History of tonsillectomy Family History Father Stomach cancer Hypertension Mother Colon cancer Mental health disorder Son Mental health disorder Social History Alcohol intake: never Patient Tobacco Use Status: Never used Tobacco Current occupational status: retired 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 Reproductive History Menstrual Age of Menarche: 17 Questionnaire Medicare Wellness Checkup What [age] What gender do you identify with?: female During the past 4 weeks, how much have you been bothered by emotional problems such as feeling anxious, depressed, irritable, sad or downhearted, and blue?: quite a bit During the past 4 weeks, has your physical & emotional health limited your social activities with family, friends, neighbors, or groups?: quite a bit During the past 4 weeks, how much bodily pain have you generally had?: moderate pain During the past 4 weeks, was someone available to help you if you needed & wanted help?: yes, a little During the past 4 weeks, what was the hardest physical activity you could do for at least 2 minutes?: light Can you get to places out of walking distance without help? (For eg., can you travel alone on buses, taxis or drive your car?): No Can you go shopping for groceries or clothes without someone's help?: No Can you prepare your own meals?: Yes Can you do your housework without help?: Yes Because of any health problems, do you need the help of another person with your personal care needs such as eating, bathing, dressing or getting around the house?: Yes Can you handle your own money without help?: Yes During the past 4 weeks, how would you rate your health in general?: good During the past 4 weeks how have things been going for you?: good & bad parts about equal Are you having difficulties driving your car?: sometimes Do you always fasten your seat belt when you are in a car?: yes, usually During past 4 weeks, have you been bothered by the following: never: Teeth or de nture problems? and Problems using the telephone?, sometimes: Falling or dizzy when standing up, often: Sexual problems? and Trouble eating well? and always: Tiredness or fatigue? Have you fallen 2 or more times in the past year?: Yes Are you afraid of falling?: No Are you a smoker?: no During the past 4 weeks, how many drinks of wine, beer, or other alcoholic beverages did you have?: no alcohol at all Do you exercise for about 20 minutes 3 or more times a week?: yes, some of the time Have you been given information to help with the following?: yes: Keeping track of your medications? How often do you have trouble taking medicines the way you have been told to take them?: I always take medicine as prescribed How confident are you that you can control & manage most of your health problems?: somewhat confident What is your race?: White Mini Mental State Exam (MMSE) Orientation What is the (year) (season) (date) (day) (month)?: year, season, date, day and month Where are we (state) (county) (town or city) (hospital) (floor)?: state, county, town or city and hospital/clinic Registration Name of 3 unrelated objects clearly and slowly, then ask patient to repeat all 3 of them. (1st repeat determines score. Make sure they can repeat all three): object 1, object 2 and object 3 Recall Ask patient to repeat the 3 items from question #3.: object 1, object 2 and object 3 Language Show patient a wristwatch & ask what it is. Repeat for pencil.: watch and pencil Ask the patient to repeat the phrase 'No ifs, ands, or buts' after you.: correct Ask the patient to 'take a piece of paper with their right hand' 'fold paper in half' 'place paper on floor': take paper in right hand, fold paper in half and place paper on floor Print the sentence 'CLOSE YOUR EYES' on a piece. If patient actually closes eyes then score.: followed written direction Give patient a blank piece of paper & ask to write a sentence. Score if it contains a noun & verb.: sentence contains subject and verb Ask patient to copy figure of intersecting pentagons exactly. Score if all 10 angles & 2 intersects are included.: all 10 angles present & 2 are intersected Score Score: 24 Activity of Daily Living Bathing - sponge bath, tub bath or shower: receives no assistance (gets in/out by self, if usual bathing means Dressing - getting clothes from closets & drawers, including inner/outer garments & fasteners.: gets clothes & gets completely dressed without help Toileting - going to the 'toilet room' for urine/bowel elimination & cleaning self/arranging clothes: goes to toilet room, cleans self, arranges clothes without help Transfer: moves in & out of bed and chair without help (may use support object) Continence: controls urination/bowel movements completely by self Feeding: feeds self without help Total Score: 0 Information obtained from: patient Using telephone: independent Traveling: independent Shopping: independent Preparing meals: independent Housework: independent Taking medicine: independent Managing money: independent PHQ-9 Over the last 2 weeks, how often have you been bothered by any of the following problems? 1. Little interest or pleasure in doing things: more than half the days 2. Feeling down, depressed, or hopeless: several days 3. Trouble falling or staying asleep, or sleeping too much: nearly every day 4. Feeling tired or having little energy: more than half the days 5. Poor appetite or overeating: nearly every day 6. Feeling bad about yourself - or that you are a failure or have let yourself or your family down: not at all 7. Trouble concentrating on things, such as reading the newspaper or watching television: several days 8. Moving or speaking so slowly that other people could have noticed. Or the opposite - being so fidgety or restless that you have been moving around a lot more than usual: several days 9. Thoughts that you would be better off or of hurting yourself in some way: not at all Total score: 13 Depression Screening Interpretation: Positive (denies and si or hi) Depression Screening Follow-up: Existing condition and Declines treatment Depression Screening Done: Yes 78153 - PHQ-9 Billing: Yes Source: Developed by Drs. Juan Garcia, Cem Broussard and colleagues, with an educational marcy from [employer]. NIKHIL-7 AMB Questionnaire NIKHIL-7 Date NIKHIL - 7 assessed: 03/13/24 Feeling nervous, anxious, or on edge: 2 = More than half the days Not being able to stop or control worryin = More than half the days Worrying too much about different things: 2 = More than half the days Trouble relaxin = Several days Being so restless that it is hard to sit still: 1 = Several days Becoming easily annoyed or irritable: 3 = Nearly every day Feeling afraid as if something awful might happen: 0 = Not at all Total NIKHIL-7 score (0-4 normal; 5-9 mild; 10-14 moderate; 15-21 severe): 11 Source: Developed by Drs. Juan Garcia, Cem Broussard and colleagues, with an educational marcy from [employer]. NIKHIL-7 Assessment Billing NIKHIL-7 Assessment Tool: NIKHIL-7 Assessment 40126 (declines treatment, denies any si hi) Review of Systems Const Reports as per HPI Physical Exam Vital Signs: Last Vital Signs Pulse 80 03/13/24 09:03 BP 132/80 03/13/24 09:46 Pulse Ox 96 03/13/24 09:03 Oxygen Delivery Method Room Air 03/13/24 09:03 BMI result Body Mass Index 31.2 Const General: cooperative Orientation/consciousness: patient oriented x3 Resp Auscultation: clear to auscultation bilaterally Cardio Rate: regular rate Rhythm: regular rhythm and abnormal rhythm Heart sounds: S1 normal heart sound present and S2 normal heart sound present Neuro Other: - romberg, can tandem walk, can walk and turn, can rise from sitting to standing, passed whisper test General: patient oriented x3 Psych Appearance: grossly normal Mental Status: mental status grossly normal Speech and movement: Normal speech and movement present Affect: normal affect Attitude: cooperative Thought process: Normal thought process present Thought content: Normal thought content present Insight: Good insight present (Psych) Judgement: Good judgement present (Psych) Assessment & Plan Assessment & Plan (1) Hypertension: Comment: stable Code(s): I10 - Essential (primary) hypertension Plan: Labs ordered (2) Postmenopausal: Code(s): Z78.0 - Asymptomatic menopausal state Plan: Bone density ordered (3) B12 deficiency: Code(s): E53.8 - Deficiency of other specified B group vitamins Plan: lab ordered (4) Encounter for annual wellness visit (AWV) in Medicare patient: Code(s): Z00.00 - Encounter for general adult medical examination without abnormal findings Plan: Discussed forms with pt Plan The patient agreed to the use of a medical esthetician for this encounter. Scribed for BENNETT Smith by Lexi Burroughs medical esthetician, on 03/13/2024 at 09:25 EST. Orders: Orders Comprehensive [place]. Panel Fast Today I10 - Essential (primary) hypertension TSH reflex Free T4 Today I10 - Essential (primary) hypertension UA CC w/rflx Micro + Cult Today I10 - Essential (primary) hypertension Vitamin D 25-OH Total Today Z78.0 - Asymptomatic menopausal state XR DEXA axial skeleton Today Z78.0 - Asymptomatic menopausal state Complete Blood Count Auto Diff Today I10 - Essential (primary) hypertension Lipid Panel Today I10 - Essential (primary) hypertension Vitamin B12 and Folate Today E53.8 - Deficiency of other specified B group vitamins Quality Reporting (2020) Depression/Bipolar (159/160/161/177) PHQ-9: Total score: 13 Coding Level of Care Code Medicare First (G0438) Est Pt Level 3 (89737) Diagnoses Hypertension I10 Postmenopausal Z78.0 B12 deficiency E53.8 Encounter for annual wellness visit (AWV) in Medicare patient Z00.00 CPT Codes Advance Care Planning - Time spent: 1-15 minutes, on File ([id number]) Additional Codes NIKHIL-7 Assessment Billing - NIKHIL-7 Assessment Tool: NIKHIL-7 Assessment 57869 ([id number]) PHQ-9 - 77912 - PHQ-9 Billing: Yes ([id number]) Advance Care Planning Forms completed: Health Care Proxy (form given to pt), MOLST (form given to pt to fill out) and Living will (encouraged pt to get done) Time spent: 1-15 minutes, on File Actual minutes spent: 15
[2024-03-13 09:46] VITALS: BP 132/80
== END 2024-03-13 09:57 | disposition home or self-care (01) ==
PROVIDERS: PCP Nurse Practitioner Family; Visit Provider Nurse Practitioner Family
DX: Z00.00 Encounter for general adult medical examination without abnormal findings (principal); I10 Essential (primary) hypertension; Z78.0 Asymptomatic menopausal state; E53.8 Deficiency of other specified B group vitamins

== ENCOUNTER → 2024-03-13 09:01 | Outpatient (BNVA) | payer MEDICARE, SELFPAY | PROVIDERS: PCP Nurse Practitioner Family; Visit Provider Nurse Practitioner Family | DX: I10 Essential (primary) hypertension (principal); E53.8 Deficiency of other specified B group vitamins; Z78.0 Asymptomatic menopausal state | CPT/HCPCS: 96127; 99212 ==

== ENCOUNTER 2024-03-28 10:46 | Outpatient (AMB) | payer MEDICARE, SELFPAY ==
--- NOTE | 2024-03-28 10:46 | MHC.OFFVIS ---
Intake Visit Reasons: 2M Med Review(fesoterodine) Intake Note: Patient is present for 2M MED REVIEW Urology Medication:NONE Antibiotic Allergy:NONE Blood Thinner:ASPIRIN Information Support Project Manager Required: No Allergies cortisone [CORTISONE] Allergy (Intermediate, Verified 03/28/24 10:47) HIVES hydrocortisone [Cortizone-10] Allergy (Unknown, Verified 03/28/24 10:47) hives Strawberries Allergy (Unknown, Uncoded 03/28/24 10:47) anaphylaxis HPI Comments Details: Gemma Simeon is a very pleasant female. She is a patient of Dr. Suresh. She is seen for the following urologic conditions. 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 Relevant past medical history Nephrolithiasis No Urinary tract infections No Ureteropelvic Junction obstruction Yes Repair at 23 yr old Laser of re-stricture 07/11 right side Ureteric stricture No Vesicoureteral reflux No Anatomic imaging findings include 06/13 , CT with, hydronephrosis, on the right 05/15 stable. Functional imaging 06/13 , with diuretic renogram - good uptake - t 1/2 R 18 min, L 3min 09/10 , with diuretic renogram - good uptake, t 1/2 bilateral < 6 min 04/12 L 40:60 - t 1/2 7 min. - 01/14 left 65, right 35 - T half right 12 - prolonged but no obstruction - 01/15 left 60, right 40, no evidence of obstruction Laboratory results 06/13 , Creatinine 0.75 04/12 0.8 05/15 Cr 0.74 11/12 0.8. 08/14 0.8. 11/14 0.8 Therapeutic plan - continue with intermittent surveillance [facility] Medical History Hx of glaucoma Right knee pain Polyp of left ear canal Hypertension Surgical History H/O: hysterectomy History of partial hysterectomy History of kidney surgery History of tonsillectomy Family History Father Stomach cancer Hypertension Mother Colon cancer Mental health disorder Son Mental health disorder Social History Alcohol intake: never Patient Tobacco Use Status: Never used Tobacco Current occupational status: retired 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 Reproductive History Menstrual Age of Menarche: 17 Review of Systems Const All systems reviewed & are unremarkable except as noted in HPI and below Reports no additional complaints Resp Reports no additional complaints GI Reports no additional complaints Reports as per HPI Musc Reports no additional complaints Physical Exam Telemedicine evaluation Appropriate responses Regular breathing rate and rhythm HEENT Head: Yes normal to inspection Ears: hearing grossly normal bilaterally Eyes General: appearance normal, both eyes and all related structures Neck Neck: Yes normal visual inspection Chest Chest palpation & inspection: normal inspection of the chest Resp Effort & Inspection: normal respiratory effort and able to speak in complete sentences Telehealth Telehealth Telehealth Platform: [employer] Location of provider rendering services: practice address Location of patient: address on file Patient Identification confirmed using: Name, : Yes Telehealth method: video Patient verbally consented to treatment: Yes Patient verbally consented to billing insurance company: Yes Patient informed of any privacy concerns related to visit: Yes Minutes spent on Phone/Video with Pt.: 15 Assessment & Plan Assessment & Plan (1) Overactive bladder: Code(s): N32.81 - Overactive bladder Category: Medical Plan Risks, benefits and alternatives to therapy were discussed. These include but are not limited to infection, bleeding, damage to local organs and tissues, need for further interventions. Anesthetic risks regarding cardiac arrhythmia, blood clots, and potential mortality were discussed. The patient understands the typical recovery time and the outpatient nature of the procedure. After consideration of these risks the patient gives full informed consent and they wish to move ahead with the procedure. Cystoscopy Botox Patient Instructions: Imaging studies, laboratory and physical exam results were discussed and reviewed in detail. No major barriers to patient understanding were identified. An opportunity to ask questions regarding the treatment plan was provided. All questions were answered. The patient expressed understanding and agreement with the above treatment plan. The patient is aware they should contact our office by phone for worsening of their current condition or the appearance of new urologic symptoms. Compliance is encouraged with any medications and followup testing that is ordered. It is a privilege to participate in the urologic care of your patient. If you have any questions or concerns regarding treatment for the above conditions, or other urologic issues, please do not hesitate to contact me. The office telephone contact is [phone]. This note is constructed using voice recognition software. While every effort has been made to ensure accuracy doll wig maker rooted hair errors may have been included. Yours sincerely, Dr Hilario Cruz MD, [facility] - Urology Providers of Expert, Compassionate Care for the Genitourinary System Coding Level of Care Code Tele Est Pt Level 4 (82312) Diagnoses Overactive bladder N32.81
== END 2024-03-28 12:16 | disposition home or self-care (01) ==
LOC: HO.HUSH 10:46
PROVIDERS: PCP Nurse Practitioner Family; Visit Provider Urology
DX: N32.81 Overactive bladder (principal)
CPT/HCPCS: 99214

== ENCOUNTER → 2024-03-28 10:46 | Outpatient (BNVA) | payer MEDICARE, SELFPAY | PROVIDERS: PCP Nurse Practitioner Family; Visit Provider Urology ==

== ENCOUNTER 2024-04-03 10:47 | Outpatient (REF) | payer MEDICARE, SELFPAY ==
[2024-04-03 13:23] LABS: MANUAL DIFF FLAG NO
[2024-04-03 13:24] LABS: Basophils Percent Auto 0.5 % (0-2); Eosinophils Absolute Auto 0.1 X10*3/uL (0.0-0.4); Eosinophils Percent Auto 2.4 % (0-4); Hematocrit 41.5 % (37.0-47.0); Hemoglobin 13.8 g/dl (12.0-16.0); Imm Gran Abs Auto 0.01 X10*3/uL (0.00-0.03); Imm Gran Pct Auto 0.2 % (0.0-0.4); Lymphocytes Absolute Auto 2.6 X10*3/uL (1.2-4.9); Lymphocytes Percent Auto 47.7 % (20-40); Mean Corpuscular HGB Conc 33.3 g/dl (31.0-35.0); Mean Corpuscular Hemoglobin 31.6 pg (27.0-33.0); Mean Platelet Volume 9.8 fL (9.4-12.3); Monocytes Absolute Auto 0.6 X10*3/uL (0.1-1.2); Monocytes Percent Auto 9.9 % (2-11); Neutrophils Absolute Auto 2.2 x10*3/uL (2.0-8.3); Neutrophils Percent Auto 39.3 % (45-73); Platelet Count 293 X10*3/uL (160-400); Red Blood Count 4.37 X10*6/uL (4.20-5.50); Red Cell Distribution Width 12.2 % (11.0-16.0); White Blood Count 5.5 X10*3/uL (4.8-10.8)
[2024-04-03 13:59] LABS: Alanine Aminotransferase 29 U/L (0-31); Albumin Level 4.2 g/dL (3.5-5.0); Alkaline Phosphatase 80 U/L (39-117); Anion Gap 11 (12-20); Aspartate Amino Transferase 25 U/L (5-31); Bilirubin Total 0.4 mg/dL (0.0-1.0); Blood Urea Nitrogen 20 mg/dL (9-16); Calcium 9.5 mg/dL (8.4-10.2); Carbon Dioxide 24 mmol/L (22-29); Chloride 108 mmol/L (96-108); Cholesterol 181 mg/dL (<200); Estimated Glomerular Filt Rate > 60; Glucose Fasting 94 mg/dL (60-99); HDL Cholesterol 51 mg/dL (>40); LDL Cholesterol Calculated 107 mg/dL (<100); Potassium 3.9 mmol/L (3.3-5.1); Sodium 139 mmol/L (135-145); Total Protein 7.3 g/dL (6.5-8.0); Triglycerides 119 mg/dL (<150)
[2024-04-03 14:15] LABS: TSH reflex Free T4 1.67 uIU/mL (0.32-4.0); Vitamin D 25-OH Total 46.1 ng/mL (>30)
[2024-04-03 14:21] LABS: Folate 13.7 ng/mL (> or = 4.0); Vitamin B12 560 pg/mL (200-900)
== END 2024-04-03 10:48 | disposition home or self-care (01) ==
LOC: HO.HMGCLDS 10:47
PROVIDERS: PCP Nurse Practitioner Family; Visit Provider Nurse Practitioner Family
DX: I10 Essential (primary) hypertension (principal); E53.8 Deficiency of other specified B group vitamins; Z78.0 Asymptomatic menopausal state
CPT/HCPCS: 36415; 80053; 80061; 82306; 82607; 82746; 84443; 85025

== ENCOUNTER 2024-05-10 10:47 | Outpatient (REF) | payer MEDICARE, SELFPAY ==
--- NOTE | ~2024-05-10 | MM_ITS ---
EXAMINATION: Dual-Energy X-ray Absorptiometry - Bone Density Study HISTORY: Estrogen deficiency TECHNIQUE: BULX Dual energy absorptiometry (DEXA) of the lumbar spine, total left hip, and femoral neck was performed. COMPARISON: Comparison is made with the prior examination dated 11/14/2021. FINDINGS: The bone mineral density of the lumbar spine is 1.243 with a T-score of 0.6, and a Z-score of 1.9. This represents a BMD change of -0.3% compared to the prior exam. This is not statistically significant. The bone mineral density of the left total hip is 0.979 with a T-score of -0.2, and a Z-score of 0.9. This represents BMD change of -8.8% compared to the prior exam. This is statistically significant. The bone mineral density of the left femoral neck is 0.848 with a T-score of -1.4, and a Z-score of 0.0. This represents BMD change of -8.1% compared to the prior exam. FRACTURE RISK: The FRAX index suggests a ten year probability of major osteoporotic fracture of 11.4%, and of hip fracture 1.4%. MM/XR DEXA axial skeleton IMPRESSION: Based on bone mineral density, and according to World Health Organization (WHO) criteria, the diagnosis is consistent with osteopenia. All bone density values are in grams per centimeter squared. At this facility, the least significant change in BMD with 95% confidence is 0.022 at the lumbar spine, 0.027 at the hip, and 0.023 at the distal 1/3 radius. Electronically signed by: Juan Herzog MD 05/11/2024 07:18 AM [facility]
== END 2024-05-10 10:48 | disposition home or self-care (01) ==
LOC: HO.MAMMO 10:47
PROVIDERS: PCP Nurse Practitioner Family; Visit Provider Nurse Practitioner Family
DX: Z13.820 Encounter for screening for osteoporosis (principal); Z78.0 Asymptomatic menopausal state
CPT/HCPCS: 77080

== ENCOUNTER → 2024-05-10 11:00 | Outpatient (BNV) | payer MEDICARE, SELFPAY | PROVIDERS: PCP Nurse Practitioner Family; Visit Provider Radiology Diagnostic Radiology | DX: E28.39 Other primary ovarian failure (principal) | CPT/HCPCS: 77080 ==

== ENCOUNTER 2024-06-26 11:14 | Outpatient (AMB) | payer MEDICARE, SELFPAY ==
--- NOTE | 2024-06-26 11:16 | MHC.OFFWIV ---
Intake Vital Signs 06/26/24 11:19 Weight 165 lb BP 140/80 H Blood Pressure Location Rt brachial Position Sitting Pulse 72 Pulse Source Pulse Oximeter Temp 98.6 F Temp Source Oral Pulse Oximetry (%) 97 Oxygen Delivery Method Room Air Intake Visit Reasons: EP Fluid in ears, pain in lt ear Intake Note: Patient here for cough, thick green mucus, bilat ear pain and sinus pressure that has been present for a couple of weeks now. Patient Tobacco Use Status: Never used Tobacco Allergies cortisone [CORTISONE] Allergy (Intermediate, Verified 06/26/24 11:19) HIVES hydrocortisone [Cortizone-10] Allergy (Unknown, Verified 06/26/24 11:19) hives Strawberries Allergy (Unknown, Uncoded 06/26/24 11:19) anaphylaxis Do you need a note to return to daycare/school/sports/work: No HPI HPI Comments History of Present Illness Details 68 y/o female patient with c/o B/L ear pain Left >Right since the weekend. She does endorse Nasal congestion, and cough for few days now. [facility] Medical History Hx of glaucoma Right knee pain Polyp of left ear canal Hypertension Surgical History H/O: hysterectomy History of partial hysterectomy History of kidney surgery History of tonsillectomy Family History Father Stomach cancer Hypertension Mother Colon cancer Mental health disorder Son Mental health disorder Social History Alcohol intake: never Patient Tobacco Use Status: Never used Tobacco Current occupational status: retired 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 Reproductive History Menstrual Age of Menarche: 17 Review of Systems Const All systems reviewed & are unremarkable except as noted in HPI and below Physical Exam Vital Signs: Last Vital Signs Temp 98.6 F 06/26/24 11:19 Pulse 72 06/26/24 11:19 BP 140/80 H 06/26/24 11:19 Pulse Ox 97 06/26/24 11:19 Oxygen Delivery Method Room Air 06/26/24 11:19 Const General: cooperative and no acute distress Orientation/consciousness: patient oriented x3 HEENT Head: Yes normocephalic Ears: external ears normal and TM abnormal bulging bilateral, wth effusion serous bilateral and with fluid behind the TM bilateral; not perforated and not retracted General nose exam: Abnormal mucous membranes and turbinates present boggy Face and sinus: Yes sinus tenderness Mouth: moist mucous membranes Throat: Yes uvula midline Resp Effort & Inspection: normal respiratory effort and able to speak in complete sentences Auscultation: clear to auscultation bilaterally, no crackles, no rales, no rhonchi and no wheezes Cardio Heart sounds: S1 normal heart sound present and S2 normal heart sound present Neuro General: patient oriented x3 Assessment & Plan Assessment & Plan (1) Acute middle ear effusion: Code(s): H65.199 - Other acute nonsuppurative otitis media, unspecified ear Qualifiers: Laterality: left Qualified Code(s): H65.192 - Other acute nonsuppurative otitis media, left ear Plan: Ordered Cipro Abx Ear Drops Acetaminophen for pain relief Ordered Sudafed. Medications: New pseudoephedrine HCl (Sudafed) 30 mg PO Q4-6H PRN 20 tabs 0RF nasal congestion H65.192 - Other acute nonsuppurative otitis media, left ear ciprofloxacin HCl 0.2% (Cetraxal) 5 drps otic (ear) left Q12H 14 ea 0RF H65.192 - Other acute nonsuppurative otitis media, left ear Coding Level of Care Code Est Pt Level 4 (45214) Diagnoses Acute effusion of left ear H65.192 Laterality: left Time Spent (min) 20
[2024-06-26 11:19] VITALS: BP 140/80; PULSE 72; TEMP 37; O2SAT 97
--- OUTSIDE RECORDS SUMMARY | 2024-06-26 13:22 | XMS_ITS | Encounter Summary ---
Author Organization [employer] Address [address] [facility] [address] [place] [address] Care Team Providers Care Lan Support Specialist Name Role Phone Unavailable Primary Care Provider Unavailabl e Encounter Details Date Type Department Care Team (Latest Contact Info) Description 01/25/2019 Abstract [facility] CONVERSIONS Dental, Provider, DDS Social History Tobacco Use Types Packs/Day Years Used Date Smoking Tobacco: Never Assessed Comments Unknown Sex and Gender Information Value Date Recorded Sex Assigned at Female 02/23/2022 10:36 AM EDT Legal Sex Female 10:36 AM EDT Gender Identity Female 02/23/2022 10:36 AM EDT Sexual Orientation Straight 02/23/2022 10 :36 AM EDT documented as of this encounter Plan of Treatment Not on file documented as of this encounter Visit Diagnoses Not on filedocumented in this encounter
--- OUTSIDE RECORDS SUMMARY | 2024-06-26 13:22 | XMS_ITS | Clinical Summary ---
Author Organization [employer] Address [address] [facility] [address] [place] [address] Care Team Providers Care Office Mail Clerk Name Role Phone Unavailable Primary Care Provider Unavailabl e Social History Tobacco Use Types Packs/Day Years Used Date Smoking Tobacco: Never Assessed Comments Unknown Sex and Gender Information Value Date Recorded Sex Assigned at Female 02/23/2022 10:36 AM EDT Legal Sex Female 10:36 AM EDT Gender Identity Female 02/23/2022 10:36 AM EDT Sexual Orientation Straight 02/23/2022 10 :36 AM EDT Plan of Treatment Health Maintenance Due Date Last Done Comments CT Colonography 1956 Colonoscopy 1956 Colorectal Cancer Screening 1956 Depression Screening 1956 FIT DNA/Cologuard 1956 FIT 1956 FOBT 1956 Sigmoidoscopy 1956 Alcohol/Substance Use Screening 1968 Tobacco Screening 1968 DTaP/Tdap/Td Vaccines (1 - Tdap) 11/30/1975 Mammogram 1996 Pneumococcal Vaccine: 50+ Ye ars (1 of 1 - PCV) 2006 Zoster Vaccines (1 of 2) 2006 COVID-19 Vaccine ( - 2023-2 5 season) 2023 Influenza Vaccine (#1) 2023 RSV Patients and Pa tients Aged 60 years or older (1 - 1-dose 75+ series) 11/30/2031 HIB Vaccines Aged Out No longer eligi ble based on patient's age to complete this topic HPV Vaccines Aged Out No longer eligi ble based on patient's age to complete this topic Hepatitis A Vaccines Aged Out No long er eligible based on patient's age to complete this topic Hepatitis B Vaccines Aged Out No long er eligible based on patient's age to complete this topic IPV Vaccines Aged Out No longer eligi ble based on patient's age to complete this topic Meningococcal Vaccine Aged Out No honey shahzad eligible based on patient's age to complete this topic RSV under 20 months Aged Out No longe r eligible based on patient's age to complete this topic Rotavirus Vaccines Aged Out No longer eligible based on patient's age to complete this topic
--- OUTSIDE RECORDS SUMMARY | 2024-06-26 13:22 | XMS_ITS | Patient Health Record ---
Author Organization [facility] Address [address] [place] [address] Care Team Providers Care Graphic Design Teacher Name Role Phone TANYA MARI Primary Care Provider Juan Shea Unavailable [phone] ALLERGIES Allergen (clinical drug ingredient) Drug/Non Drug Allergy documented on EMR Reaction Allergy Type Onset Date Status hydrocortisone Hydrocortisone Unknown Drug Allergy Active cortizone injections (uncoded) Unknown Allergy Active strawberry allergenic extract strawberries (uncoded) Unknown Allergy Activ e REASON FOR REFERRAL No Information MEDICATIONS Medication SIG (Take, Route, Frequency, Duration) Notes Start Date End Date Status Docusate Sodium 100 MG 1 capsule as need ed Orally Once a day for 30 day(s) Active Ibuprofen 800 MG 1 tablet Orally twic e a day as needed Active Calcium Carbonate 600 MG as directed Orally Active EpiPen 2-Shmuel 0.3 MG/0.3ML 1 Injection us e as directed/prn Active ProAir HFA 108 (90 Base) MCG/ACT 2 puffs as needed Inhalation every 4 hrs as needed Active Vitamin B-12 ER 1000 MCG 1 tablet Orally Once a day for 30 day(s) Active traMADol HCl 50 MG 1 tablet as needed O rally prn Active Aspirin 81 MG 1 tablet Orally Once a day Active Atorvastatin Calcium 20 MG 1 tablet Oral ly Once a day Active Metoprolol Succinate ER 50 MG 1 tablet Orally Once a day Active Albuterol Sulfate HFA 108 (90 Base) MCG/ACT Inhalation for 30 Activ e Meloxicam 15 MG 1 tablet Orally Once a day Active busPIRone HCl 5 MG 2 tablet Orally twic e a day Active Vitamin D3 2000 UNIT 1 capsule Orally On ce a day Active Tolterodine Tartrate ER 4 MG 1 capsule Orally Once a day Active IMMUNIZATIONS Vaccine Route Administration Date Status Comme nts Influenza Unknown 11/20/2021 Refused SOCIAL HISTORY Sex Assigned At : Social History Observation Description Sex Assigned At Unknown PROBLEMS Problem Type ICD Code Onset Dates Problem Status W/U Status Risk SNOMED Code Notes Problem Encounter for screening for malignant neoplasm of colon (Z12.11) Active confirmed 043517004 Problem History of adenomatous polyp of colon (Z86.010) Active confirmed History of adenomatous polyp of colon (437405111) Problem Encounter for screening for malignant neoplasm of rectum (Z12.12) Active confirmed Screening fo r malignant neoplasm of rectum (854567613) Problem Family history of colon cancer (Z80.0) Active confirmed 164876519 Problem Constipation, unspecified constipation type (K59.00) Active confirmed 26488857 Problem Diverticulosis of colon (K57.30) Active confirmed Diverticulosi s of colon (103642955) PLAN OF TREATMENT Pending Test Test Name Order Date Pathology 01/09/2022 Future Test Test Name Order Date COLONOSCOPY 02/12/2011 COLONOSCOPY 06/11/2016 COLONOSCOPY 11/20/2021 Insurance Providers Payer Name Payer Address Payer Phone Subscriber Number Group Number Insured Name Patient Relationship to Insured Coverage Start Date Coverage End Date MEDICARE OF [place] [address] [place] [address] [id number] COURTNEY GAONA NENA Self - patient is the insured MEDICAID OF [facility] [address] [place] [phone] [id number] NENA LAUGHLIN Self - patient is the insured MEDICAL (GENERAL) HISTORY Medical History History ICD Code Negative screening colonoscopies in 2004 and on 03-17-2011 Hyperlipidemia Hypertension Denies ND,DM,CVA,renal disease Anxiety/depression--panic attacks 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
== END 2024-06-26 11:53 | disposition home or self-care (01) ==
PROVIDERS: PCP Nurse Practitioner Family; Visit Provider Nurse Practitioner Family
DX: H65.192 Other acute nonsuppurative otitis media, left ear (principal)

== ENCOUNTER → 2024-06-26 11:14 | Outpatient (BNVA) | payer MEDICARE, SELFPAY | PROVIDERS: PCP Nurse Practitioner Family | DX: H65.192 Other acute nonsuppurative otitis media, left ear (principal) | CPT/HCPCS: 99212 ==

== ENCOUNTER 2024-08-04 12:23 | Outpatient (REF) | payer MEDICARE, SELFPAY ==
--- OUTSIDE RECORDS SUMMARY | 2024-08-04 13:05 | XMS_ITS | Patient Health Record ---
Author Organization [facility] Address [address] [place] [address] Care Team Providers Care Real Estate Office Manager Name Role Phone TANYA MARI Primary Care Provider Juan Shea Unavailable [phone] Allergies Allergen (clinical drug ingredient) Drug/Non Drug Allergy documented on EMR Reaction Allergy Type Onset Date Status hydrocortisone Hydrocortisone Unknown Drug Allergy Active cortizone injections (uncoded) Unknown Allergy Active strawberry allergenic extract strawberries (uncoded) Unknown Allergy Activ e Reason For Referral No Information Medications Medication SIG (Take, Route, Frequency, Duration) Notes [...] 1 capsule Orally Once a day Active Immunizations Vaccine Route Administration Date Status Comme nts Influenza Unknown 11/20/2021 Refused Problems Problem Type SNOMED Code ICD Code Onset Dates Problem Status W/U Status Risk Notes Problem [id number] Encounter for screening for malignant neoplasm of colon (Z12.11) Active confirmed Problem History of adenomatous polyp of colon (376171528) History of adenomatous polyp of colon (Z86.010) Active confirmed Problem Screening for malignant neoplasm of rectum (083908242) Encounter for screening for malignant neoplasm of rectum (Z12.12) Active confirmed Problem 455175408 Family history o f colon cancer (Z80.0) Active confirmed Problem 97980948 Constipation, unspecified constipation type (K59.00) Active confirmed Problem Diverticulosis of colon (146096102) Diverticulosis of colon (K57.30) Active confirmed Plan Of Treatment Pending Test Test Name Order Date Pathology 01/09/2022 Future Test Test Name Order Date COLONOSCOPY 02/12/2011 COLONOSCOPY 06/11/2016 COLONOSCOPY 11/20/2021 Insurance Providers Payer Name Payer Address Payer Phone Subscriber Number Group Number Insured Name Patient Relationship to Insured Coverage Start Date Coverage End Date MEDICARE OF [place] [address] [place] [address] [id number] [facility] NENA GAONA Self - patient is the insured MEDICAID OF [facility] [address] [place] [phone] [id number] COURTNEY GAONA NENA Self - patient is the insured Medical (General) History Medical History History ICD Code Negative screening colonoscopies in 2004 and on 03-17-2011 Hyperlipidemia Hypertension Denies ID,DM,CVA,renal disease Anxiety/depression--panic attacks 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
--- OUTSIDE RECORDS SUMMARY | 2024-08-04 13:05 | XMS_ITS | Clinical Summary ---
Author Organization [employer] Address [address] [facility] [address] [place] [address] Care Team Providers Care Buggy Runner Name Role Phone Unavailable Primary Care Provider [...]
--- OUTSIDE RECORDS SUMMARY | 2024-08-04 13:05 | XMS_ITS | Encounter Summary ---
Author Organization [employer] Address [address] [facility] 7t [place] [address] Care Team Providers Care Dry Box Tender Name Role Phone Unavailable Primary Care Provider Unavailabl e Encounter Details Date Type Department Care Team (Latest Contact Info) Description 01/25/2019 Abstract [facility] CONVERSIONS Dental, Provider, DDS Social History Tobacco [...]
== END 2024-08-04 12:24 | disposition home or self-care (01) ==
LOC: HO.MAMMO 12:23
PROVIDERS: PCP Nurse Practitioner Family; Visit Provider Nurse Practitioner Family
DX: Z12.31 Encounter for screening mammogram for malignant neoplasm of breast (principal)
CPT/HCPCS: 77063; 77067

== ENCOUNTER → 2024-08-04 12:30 | Outpatient (BNV) | payer MEDICARE, SELFPAY | PROVIDERS: PCP Nurse Practitioner Family; Visit Provider Internal Medicine | DX: Z12.31 Encounter for screening mammogram for malignant neoplasm of breast (principal) | CPT/HCPCS: 77063; 77067 ==

== ENCOUNTER 2024-09-08 09:48 | Outpatient (AMB) | payer MEDICARE, SELFPAY ==
--- NOTE | 2024-09-08 09:48 | MHC.OFFVIS ---
Intake Visit Reasons: Discuss Botox Intake Note: Patient is present for DISCUSS BOTOX Urology Medication:NONE Antibiotic Allergy:NONE Blood Thinner:ASPIRIN Paper Testing Supervisor Required: No Allergies cortisone [CORTISONE] Allergy (Intermediate, Verified 09/08/24 09:49) HIVES hydrocortisone [Cortizone-10] Allergy (Unknown, Verified 09/08/24 09:49) hives Strawberries Allergy (Unknown, Uncoded 09/08/24 09:49) anaphylaxis HPI Comments Details: Gemma Simeon is a very pleasant female. She is a patient of Dr. Suresh. She is seen for the following urologic conditions. - hydronephrosis - urinary urgency Telemedicine Evaluation 15 min Consultation [employer] Video attempted Continues to experience overactive bladder with significant symptoms Involved with bathroom planning Does wake 4-5 times at night Uses toilet at supermarket Marked urgent frequency Interested in proceeding with Botox Not available till end of summer as had childcare commitments Plan follow-up Dr. Griffin late November or early December for assessment. May need urodynamics. 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 Relevant past medical history Nephrolithiasis No Urinary tract infections No Ureteropelvic Junction obstruction Yes Repair at 23 yr old Laser of re-stricture 07/11 right side Ureteric stricture No Vesicoureteral reflux No Anatomic imaging findings include 06/13 , CT with, hydronephrosis, on the right 05/15 stable. Functional imaging 06/13 , with diuretic renogram - good uptake - t 1/2 R 18 min, L 3min 09/10 , with diuretic renogram - good uptake, t 1/2 bilateral < 6 min 04/12 L 40:60 - t 1/2 7 min. - 01/14 left 65, right 35 - T half right 12 - prolonged but no obstruction - 01/15 left 60, right 40, no evidence of obstruction Laboratory results 06/13 , Creatinine 0.75 04/12 0.8 05/15 Cr 0.74 11/12 0.8. 08/14 0.8. 11/14 0.8 Therapeutic plan - continue with intermittent surveillance PFSH Medical History Hx of glaucoma Right knee pain Polyp of left ear canal Hypertension Surgical History H/O: hysterectomy History of partial hysterectomy History of kidney surgery History of tonsillectomy Family History Father Stomach cancer Hypertension Mother Colon cancer Mental health disorder Son Mental health disorder Social History Alcohol intake: never Patient Tobacco Use Status: Never used Tobacco Current occupational status: retired 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 Reproductive History Menstrual Age of Menarche: 17 Review of Systems Const All systems reviewed & are unremarkable except as noted in HPI and below Reports no additional complaints Resp Reports no additional complaints GI Reports no additional complaints Reports as per HPI Musc Reports no additional complaints Physical Exam Telemedicine evaluation Appropriate responses Regular breathing rate and rhythm HEENT Head: Yes normal to inspection Ears: hearing grossly normal bilaterally Eyes General: appearance normal, both eyes and all related structures Neck Neck: Yes normal visual inspection Chest Chest palpation & inspection: normal inspection of the chest Resp Effort & Inspection: normal respiratory effort and able to speak in complete sentences Telehealth Telehealth Telehealth Platform: [facility] Location of provider rendering services: practice address Location of patient: address on file Patient Identification confirmed using: Name, : Yes Telehealth method: video Patient verbally consented to treatment: Yes Patient verbally consented to billing insurance company: Yes Patient informed of any privacy concerns related to visit: Yes Minutes spent on Phone/Video with Pt.: 15 Assessment & Plan Assessment & Plan (1) Overactive bladder: Code(s): N32.81 - Overactive bladder Category: Medical Plan Follow-up late November/early December for Botox assessment Patient Instructions: This note is constructed using voice recognition software. While every effort has been made to ensure accuracy fuel tank sealer and tester errors may have been included. Imaging studies, laboratory and physical exam results were discussed and reviewed in detail. No major barriers to patient understanding were identified. An opportunity to ask questions regarding the treatment plan was provided. All questions were answered. The patient expressed understanding and agreement with the above treatment plan. The patient is aware they should contact our office by phone for worsening of their current condition or the appearance of new urologic symptoms. Compliance is encouraged with any medications and followup testing that is ordered. It is a privilege to participate in the urologic care of your patient. If you have any questions or concerns regarding treatment for the above conditions, or other urologic issues, please do not hesitate to contact me. The office telephone contact is [phone]. Sincerely, Dr Hilario Cruz MD, [facility] Compassionate Specialist Care for the Genitourinary System Coding Level of Care Code Tele Est Pt Level 3 (89836) Diagnoses Overactive bladder N32.81
--- OUTSIDE RECORDS SUMMARY | 2024-09-08 10:06 | XMS_ITS | Clinical Summary ---
Author Organization [employer] Address [address] [facility] [address] [place] [address] Care Team Providers Care Research Tech Name Role Phone Unavailable Primary Care Provider [...] patient's age to complete this topic Meningococcal B Vaccine Aged Out No l onger eligible based on patient's age to complete [...]
--- OUTSIDE RECORDS SUMMARY | 2024-09-08 10:07 | XMS_ITS | Patient Health Record ---
Author Organization [facility] Address [address] [place] [address] Care Team Providers Care Family Services Specialist Name Role Phone TANYA MARI Primary Care Provider Juan Shea Unavailable [phone] Allergies Allergen (clinical drug ingredient) Drug/Non Drug [...] Problem Status W/U Status Risk Notes Problem 677554684 Encounter for screening for malignant neoplasm of colon (Z12.11) Active confirmed Problem History of adenomatous polyp of colon (126627559) History of adenomatous polyp of colon (Z86.010) Active confirmed Problem Screening for malignant neoplasm of rectum (024492468) Encounter for screening for malignant neoplasm of rectum (Z12.12) Active confirmed Problem 407172834 Family history o f colon cancer (Z80.0) Active confirmed Problem 20784863 Constipation, unspecified constipation type (K59.00) Active confirmed Problem Diverticulosis of colon (413870088) Diverticulosis of colon (K57.30) Active confirmed Plan Of Treatment Pending Test Test Name Order Date Pathology 01/09/2022 Future Test Test Name Order Date COLONOSCOPY 02/12/2011 COLONOSCOPY 06/11/2016 COLONOSCOPY 11/20/2021 Insurance Providers Payer Name Payer Address Payer Phone Subscriber Number Group Number Insured Name Patient Relationship to Insured Coverage Start Date Coverage End Date MEDICARE OF [place] [address] [facility] [place] [address] [id number] [facility] Self - patient is the insured MEDICAID OF [facility] [address] [place] [address] [id number] COURTNEY GAONA NENA Self - patient is the insured Medical (General) History Medical History History ICD Code Negative screening colonoscopies in 2004 and on 03-17-2011 Hyperlipidemia Hypertension Denies SD,DM,CVA,renal disease Anxiety/depression--panic attacks 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
--- OUTSIDE RECORDS SUMMARY | 2024-09-08 10:07 | XMS_ITS | Encounter Summary ---
Author Organization [employer] Address [address] [facility] [address] [place] [address] Care Team Providers Care Automation Operator Name Role Phone Unavailable Primary Care Provider Unavailabl e Encounter Details Date Type Department Care Team (Latest Contact Info) Description 01/25/2019 Abstract [facility] CONVERSIONS Dental, Provider, DDS Social [...]
== END 2024-09-08 11:19 | disposition home or self-care (01) ==
LOC: HO.HUSH 09:48
PROVIDERS: PCP Nurse Practitioner Family; Visit Provider Urology
DX: N32.81 Overactive bladder (principal)
CPT/HCPCS: 98005

== ENCOUNTER 2024-11-20 14:51 | Outpatient (AMB) | payer MEDICARE, SELFPAY ==
[2024-11-20 15:03] VITALS: BP 170/100; PULSE 72; RESP 16; TEMP 36.7; O2SAT 97; BMI 30.6
--- NOTE | 2024-11-20 15:03 | A.OFFPC_ITS ---
Vital Signs 11/20/24 15:03 Height 5 ft 1 in Weight 162 lb BMI 30.6 BP 170/100 H Blood Pressure Location Lt brachial Position Sitting Respiration 16 Pulse 72 Pulse Source Pulse Oximeter Temp 98.1 F Temp Source Oral Pulse Oximetry (%) 97 Oxygen Delivery Method Room Air Intake Visit Reasons: chest pain followup [place] Required: No Accompanied by: Self / Same As Patient Allergies cortisone (CORTISONE) Allergy (Intermediate, Verified 11/20/24 15:33) HIVES hydrocortisone (Cortizone-10) Allergy (Unknown, Verified 11/20/24 15:33) hives Strawberries Allergy (Unknown, Uncoded 11/20/24 15:33) anaphylaxis Medication List - Last Reconciled 11/20/24 by DORYS Yu- albuterol sulfate 90 mcg/actuation 2 puffs inhalation Q4H PRN 30 days aspirin 81 mg PO DAILY atorvastatin 20 mg PO DAILY buspirone 10 mg (2 x 5 mg) PO BID 90 days calcium carbonate 600 mg PO BID cholecalciferol (vitamin D3) 50 mcg PO DAILY ciprofloxacin HCl 0.2% (Cetraxal) 5 drps otic (ear) left Q12H docusate sodium 100 mg PO DAILY epinephrine 0.3 mL IM DIRECTED hydroxyzine HCl 10 mg PO QID PRN latanoprost 0.005% drps ophthalmic (eye) loratadine 10 mg PO DAILY PRN 30 days meloxicam 15 mg PO DAILY PRN metoprolol succinate ER 50 mg PO DAILY pseudoephedrine HCl (Sudafed) 30 mg PO Q4-6H PRN Tobacco use date assessed: 11/20/24 Fall risk assessment: No Falls in past year Last assessed Fall Risk: 11/20/24 Dental Screening Dental Screen Date: 11/20/24 Did you have a dental visit in the last 12 months?: Yes Did you have a dental problem in the last 6 months where you did not have access to dental care?: No Was dental information given to patient?: Patient has dentist HPI chest pain followup HPI Details Chief Complaint The patient presents with chest pain. History of Present Illness The patient is a 68-year-old female presenting with chest pain. The chest pain began last week, waking her from sleep, and was described as discomfort or sharp pain across the chest, lasting about 22 minutes. Further episodes persisted. The pain is mostly experienced while sitting still and is intermittent, lasting seconds to minutes. She denies paroxysmal nocturnal dyspnea, respiratory changes, and feverish chills. The patient has never smoked. Social History - Smoking: The patient has never smoked. Health Maintenance Review of Systems - Cardiovascular: Reports chest pain. De nies paroxysmal nocturnal dyspnea. - Respiratory: Denies respiratory change s. - General: Denies feverish chills. Physical Exam General: Cooperative, healthy appearing, comfortable, no acute distress and well developed Orientation: Patient oriented x3 Limitations: No limitations Head: Normal to inspection Ears: Hearing grossly normal bilaterally Nose: Normal external nose present Face and sinus: Normal facial exam Eyes: Appearance normal, both eyes and all related structures Neck: Normal visual inspection and Yes full ROM Respiratory: Normal respiratory effort and able to speak in complete sentences. Clear to auscultation bilaterally Cardiovascular: Regular rate and rhythm. Normal S1 and S2 GI: Normal to inspection. Soft to palpation and nontender Skin: No rashes or lesions noted Neuro: Patient oriented x3 Extremities: Normal to inspection Results - EKG: Normal sinus rhythm Plan A stat stress test and echocardiogram will be conducted to further evaluate the chest pain. An EKG was performed, showing normal sinus rhythm. The patient was advised to go to the emergency room if the chest pain persists, but she refused at the time of the visit. Discussion Notes I discussed with the patient the need for further evaluation of her chest pain through a stress test and echocardiogram. I advised her to seek emergency care if the symptoms persist, although she declined to go to the emergency room at this time. Patient Instructions - If chest pain continues, go to the [facility] room immediately. PFSH Medical History Hx of glaucoma Right knee pain Polyp of left ear canal Hypertension Surgical History H/O: hysterectomy History of partial hysterectomy History of kidney surgery History of tonsillectomy Family History Father Stomach cancer Hypertension Mother Colon cancer Mental health disorder Son Mental health disorder Social History Housing: Apartment Alcohol intake: never Patient Tobacco Use Status: Never used Tobacco service: No Current occupational status: retired 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 Reproductive History Menstrual Age of Menarche: 17 Questionnaire PHQ-9 Over the last 2 weeks, how often have you been bothered by any of the following problems? 1. Little interest or pleasure in doing things: nearly every day 2. Feeling down, depressed, or hopeless: nearly every day 3. Trouble falling or staying asleep, or sleeping too much: nearly every day 4. Feeling tired or having little energy: nearly every day 5. Poor appetite or overeating: more than half the days 6. Feeling bad about yourself - or that you are a failure or have let yourself or your family down: not at all 7. Trouble concentrating on things, such as reading the newspaper or watching television: more than half the days 8. Moving or speaking so slowly that other people could have noticed. Or the opposite - being so fidgety or restless that you have been moving around a lot more than usual: nearly every day 9. Thoughts that you would be better off or of hurting yourself in some way: not at all Total score: 19 Depression Screening Interpretation: Positive (denies any si or hi) Depression Screening Follow-up: Existing condition Depression Screening Done: Yes 35407 - PHQ-9 Billing: Yes Source: Developed by Drs. Juan Garcia, Belen Calloway, Cem Garcia and colleagues, with an educational marcy from [employer]. Thrive Questionnaire Date Thrive assessed: 11/17/24 I am a: Patient What is your living situation today?: I have a steady place to live Within the past 12 months, did the food you bought not last and you didn't have the money to get more?: Never true Within the past 12 months, did you worry whether your food would run out before you got money to buy more?: Never true Do you have trouble paying for medicines?: No Do you have trouble getting transportation to medical appointments?: No Do you have trouble paying your heating and electricity bill?: No Do you have trouble taking care of your child, family member or friend?: No Do you have trouble with day-to-day activities such as bathing, preparing meals, shopping, managing finances, etc.?: Yes Are you currently unemployed and looking for a job?: No Are you interested in more education?: No Please select the resources that you would like help with: None Currently or been in a relationship where the following occur: No concerns reported THRIVE Score: 0 AUDIT C Alcohol Use Questionnaire (AUDIT-C) 1. How often do you have a drink containing alcohol?: Never 3. How often do you have six or more drinks on one occasion?: Never Total Score: 0 NIKHIL-7 AMB Questionnaire NIKHIL-7 Date NIKHIL - 7 assessed: 11/20/24 Feeling nervous, anxious, or on edge: 3 = Nearly every day Not being able to stop or control worryin = More than half the days Worrying too much about different things: 3 = Nearly every day Trouble relaxin = Nearly every day Being so restless that it is hard to sit still: 3 = Nearly every day Becoming easily annoyed or irritable: 3 = Nearly every day Feeling afraid as if something awful might happen: 2 = More than half the days Total NIKHIL-7 score (0-4 normal; 5-9 mild; 10-14 moderate; 15-21 severe): 19 Source: Developed by Drs. Juan Garcia, Belen Calloway, Cem Garcia and colleagues, with an educational marcy from [employer]. NIKHIL-7 Assessment Billing NIKHIL-7 Assessment Tool: NIKHIL-7 Assessment 18316 (declines treatment, denies any si hi) Physical exam (Primary Care) Vital Signs: Last Vital Signs Temp 98.1 F 11/20/24 15:03 Pulse 72 11/20/24 15:03 Resp 16 11/20/24 15:03 BP 170/100 H 11/20/24 15:03 Pulse Ox 97 11/20/24 15:03 Oxygen Delivery Method Room Air 11/20/24 15:03 BMI result Body Mass Index 30.6 Tobacco/Smoking Status: Tobacco use Status Tobacco use date assessed 11/20/24 11/20/24 15:10 Patient Tobacco Use Status Never used Tobacco 11/20/24 15:10 PHQ-9: PHQ-9 Score PHQ-9: Total score 19 11/20/24 15:10 Depression Screening Interpretation: Positive (denies any si or hi) Depression Screening Follow-up: Existing condition Thrive Assessment: Date of Thrive Assessment Date Thrive assessed 11/17/24 11/20/24 15:10 Currently or been in a relationship where the following occur: No concerns reported Coding Level of Care Code Est Pt Level 3 (65746) Diagnoses Chest pain R07.9 Additional Codes PHQ-9 - 13431 - PHQ-9 Billing: Yes ([id number]) NIKHIL-7 Assessment Billing - NIKHIL-7 Assessment Tool: NIKHLI-7 Assessment 52672 ([id number]) Assessment & Plan Assessment & Plan (1) Chest pain: Code(s): R07.9 - Chest pain, unspecified Category: Medical Plan . Orders: Orders AMB EKG-In Office Today R07.9 - Chest pain, unspecified CA echo transthoracic complete Today R07.9 - Chest pain, unspecified CA stress test Today R07.9 - Chest pain, unspecified NM cardiolite stress test Today R07.9 - Chest pain, unspecified Troponin-I High Sensitivity Today R07.9 - Chest pain, unspecified
--- OUTSIDE RECORDS SUMMARY | 2024-11-20 15:25 | XMS_ITS | Patient Health Record ---
Author Organization [facility] Address [address] [place] [address] Care Team Providers Care Fender Mechanic Apprentice Name Role Phone TANYA MARI Primary Care Provider Juan Shea Unavailable [phone] Allergies Allergen (clinical drug ingredient) Drug/Non Drug [...] Problem Status W/U Status Risk Notes Problem 744797090 Encounter for screening for malignant neoplasm of colon (Z12.11) Active confirmed Problem History of adenomatous polyp of colon (209150845) History of adenomatous polyp of colon (Z86.010) Active confirmed Problem Screening for malignant neoplasm of rectum (083699143) Encounter for screening for malignant neoplasm of rectum (Z12.12) Active confirmed Problem 462735902 Family history o f colon cancer (Z80.0) Active confirmed Problem 16553190 Constipation, unspecified constipation type (K59.00) Active confirmed Problem Diverticulosis of colon (257946844) Diverticulosis of colon (K57.30) Active confirmed Plan Of Treatment Pending Test Test Name Order Date Pathology 01/09/2022 Future Test Test Name Order Date COLONOSCOPY 02/12/2011 COLONOSCOPY 06/11/2016 COLONOSCOPY 11/20/2021 Insurance Providers Payer Name Payer Address Payer Phone Subscriber Number Group Number Insured Name Patient Relationship to Insured Coverage Start Date Coverage End Date MEDICARE OF [place] [address] [facility] [place] [place] [address] [id number] [facility] CANDELARIANENA Self - patient is the insured MEDICAID OF [facility] [address] [place] [address] [id number] COURTNEY GAONA NENA Self - patient is the insured Medical (General) History Medical History History ICD Code Negative screening colonoscopies in 2004 and on 03-17-2011 Hyperlipidemia Hypertension Denies [place],DM,CVA,renal disease Anxiety/depression--panic attacks 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
--- OUTSIDE RECORDS SUMMARY | 2024-11-20 15:25 | XMS_ITS | Clinical Summary ---
Author Organization [facility] Address [address] [place] [id number] Phone Care Team Providers Care Putaway Driver Name Role Phone Jefe Mitchell NP Primary Care Provider + Allergies Active Allergy Reactions Criticality Noted Date Comments Cortisone 10/10/2021 Hydrocortisone 12/04/2021 Other reaction(s): Unknown [place] 10/22/2021 Medications albuterol 90 mcg/actuation inhaler 09/24/2021 Active atorvastatin (LIPITOR) 20 MG tablet 10/21/2021 Active busPIRone (BUSPAR) 5 MG tablet 10/21/2021 Active meloxicam (MOBIC) 15 MG tablet 10/12/2021 Active Social History Tobacco Use Types Packs/Day Years Used Date Smoking Tobacco: Never Smokeless Tobacco: Never Alcohol Use Standard Drinks/Week Comments Not Currently 0 (1 standard drink = 0.6 oz pur e alcohol) Education Answer Date Recorded Are you interested in more education? Not on roxy e 08/21/2022 Are you concerned about learning? Not on file 08/21/2022 No 08/21/2022 No 08/21/2022 Digital Access Answer Date Recorded No 09/19/2022 No 09/19/2022 Reliable internet access at home? Not on file 09/19/2022 Device with a working camera? Not on file Comments Unknown Sex and Gender Information Value Date Recorded Sex Assigned at Not on file Legal Sex Female 9:53 PM EDT Gender Identity Not on file Sexual Orientation Not on file Last Filed Vital Signs Vital Sign Reading Time Taken Comments Blood Pressure 160/74 10/10/2021 6:43 PM EDT Pulse 68 10/10/2021 6:43 PM EDT Temperature 37.1 C (98.8 F) 10/10/2021 6:43 PM EDT Respiratory Rate 16 10/10/2021 6:43 PM EDT Oxygen Saturation 98% 10/10/2021 6:43 PM EDT Inhaled Oxygen Concentration - - Weight 74.8 kg (165 lb) 10/10/2021 6:43 PM EDT Height - - Body Mass Index - - Plan of Treatment Health Maintenance Due Date Last Done Comments Adult Td,Tdap Booster 1956 LIPID PANEL 1956 DEPRESSION SCREENING 1968 HEPATITIS C SCREENING 1974 MAMMOGRAM 1996 COLOGUARD 2001 COLONOSCOPY 2001 COLORECTAL CANCER SCREENING 2001 FIT TEST 2001 FOBT 2001 SIGMOIDOSCOPY 2001 VIRTUAL COLONOSCOPY 2001 PNEUMOCOCCAL VACCINES (50+ years) (1 of 1 - PCV) 2006 ZOSTER VACCINES (1 of 2) 2006 OSTEOPOROSIS SCREENING INITI AL (ONE-TIME) 2021 COVID-19 VACCINE (4 - 2023-2 5 season) 2023 05/10/2021, 06/28/2020, 05/31/2020 RSV VACCINE (1 - 1-dose 75+ series) 11/30/2031 SMOKING STATUS SCREENING (On ce After 26 Yrs) Completed 05/28/2023 HEPATITIS A VACCINES Aged Out No long er eligible based on patient's age to complete this topic HIB VACCINES Aged Out No longer eligi ble based on patient's age to complete this topic MENINGOCOCCAL VACCINES (ACWY) Aged Out No longer eligible based on patient's age to complete this topic MENINGOCOCCAL VACCINES (B) Aged Out N o longer eligible based on patient's age to complete this topic Medical Devices Not on file Insurance MEDICARE PART A & B [place] MED[place] PREFERRED PPO REPLACEMENT MEDICARE PART [place]REF[place]ED PPO REPLACEMENT MEDICARE PART A & B [facility] MEDICARE PART A & [place] PREFERRED PPO REPLACEMENT MEDICARE PART A & B [facility] MEDICARE PART A & B [place] MED[place] PREFERRED PPO REPLACEMENT MEDICARE PART A & B [place] MED[place] PREFERRED PPO REPLACEMENT MEDICARE PART A & B [facility] MEDICARE [place] [id number] Care Teams Putaway Driver Relationship Specialty Start Date End Date Jefe Mitchell NP [address] [place] [id number] PCP - General Family Medicine 10/10/21 Additional Source Comments The information contained in this document represents components of the legal health record. It is not the complete legal health record.[facility]
--- OUTSIDE RECORDS SUMMARY | 2024-11-20 15:25 | XMS_ITS | Patient Health Record ---
Author Organization [facility] Marsha justine Orozco Address [address] [place] [address] Care Team Providers Care Chief Petroleum Engineer Name Role Phone Jefe Batres Primary Care Provider Unav ailable Black, Ирина Unavailable [phone] Allergies Allergen (clinical drug ingredient) Drug/Non Drug Allergy documented on EMR Reaction Allergy Type Onset Date Status Cortisone Unknown Drug Allergy Active Reason For Referral No Information Medications Medication SIG (Take, Route, Frequency, Duration) Notes Start Date End Date Status Atorvastatin Calcium 10 MG Orally Active Tolterodine Tartrate ER 4 MG (Prior Auth: Rx Ref#:[id number]) Oral; Duration: 90 Active DOK 100 MG (Prior Auth: Rx Ref#:[id number]) Oral; Duration: 30 Active Albuterol Sulfate HFA 108 (90 Base) MCG/ACT (Prior Auth: Rx Ref#:[id number]) Inhalation; Duration: 17 Active SM Calcium 600+D3 600-800 MG-UNIT (Prior Auth: Rx Ref#:[id number]) Oral; Duration: 30 Active B-12 1000 MCG (Prior Auth: Rx Ref#:[id number]) Oral; Duration: 30 Active Meloxicam 15 MG (Prior Auth: Rx Ref#:[id number]) Oral; Duration: 30 Active Metoprolol & Diet Manage Prod Active Vitamin D 2000 UNIT (Prior Auth: Rx Ref#:[id number]) Oral; Duration: 30 Active SM Aspirin Adult Low Strength 81 MG (Prior Auth: Rx Ref#:[id number]) Oral; Duration: 30 Active Metoprolol Succinate ER 50 MG (Prior Auth: Rx Ref#:[id number]) Oral; Duration: 30 Active Social History Tobacco use other than smoking: Question Answer Notes Are you an other tobacco user? No Problems No Known Problems Plan Of Treatment No Information Insurance Providers Payer Name Payer Address Payer Phone Subscriber Number Group Number Insured Name Patient Relationship to Insured Coverage Start Date Coverage End Date Medicare National [employer]t [employer] [address] [place] [address] [id number] Fabiola [place]ston Gemma Self - patient is the insured 0 Medical (General) History Medical History History ICD Code Angina Back,Hip,and Knee pain Hypertension Chicken pox Cholesterol Anxiety asthma Arthritis Osteoporosis Surgical History Surgery Date(Month/Year) kidney surgery
--- OUTSIDE RECORDS SUMMARY | 2024-11-20 15:25 | XMS_ITS | Clinical Summary ---
Author Organization [facility] Address [address] [place] [address] Care Team Providers Care Coin Dealer Name Role Phone Unavailable Primary Care Provider [...] 2023-2 5 season) 2023 Influenza Vaccine (#1) 2024 RSV Patients and Pa tients Aged 60 [...]
== END 2024-11-20 16:19 | disposition home or self-care (01) ==
LOC: HO.HMCC 14:52
PROVIDERS: PCP Nurse Practitioner Family; Visit Provider Nurse Practitioner Family
DX: R07.9 Chest pain, unspecified (principal)

== ENCOUNTER → 2024-11-20 14:51 | Outpatient (BNVA) | payer MEDICARE, SELFPAY | PROVIDERS: PCP Nurse Practitioner Family; Visit Provider Nurse Practitioner Family | DX: I10 Essential (primary) hypertension (principal); R07.9 Chest pain, unspecified | CPT/HCPCS: 96127; 99212 ==

== ENCOUNTER → 2024-11-27 09:55 | Outpatient (REF) | payer MEDICARE, MEDICAID, SELFPAY ==
--- NOTE | ~2024-11-27 | NM_ITS ---
EXERCISE MYOCARDIAL PERFUSION STUDY INDICATION: Chest pain TECHNIQUE: The patient was brought in for an exercise perfusion study on 11/27/2024. Patient performed exercise as per [place] protocol and was injected 25 mCi of sestamibi once target heart rate was achieved. Images were obtained using the SPECT gamma camera interlaced with the gating device. Images were obtained in supine position. Resting perfusion study was performed on 11/28/2024. Patient was administered 25 mCi of sestamibi intravenously at rest. Images were then obtained in supine position. Total DLP 100 mGy-cm. Images were processed with the software and compared side to side in short axis, horizontal long axis and vertical long axis views. FINDINGS: Raw aquisition reviewed. The stress perfusion study showed no significant perfusion abnormality. Both uncorrected as well as CT attenuation corrected images were reviewed. The gated study shows normal LV systolic function with calculated LVEF of 67%. LV cavity is normal in size. The gated study shows normal wall thickening and contraction of segments. Resting study shows diminished tracer uptake in the distal part of inferolateral wall. There is improvement with CT attenuation correction suggestive of diaphragmatic attenuation artifact. Gating at rest reveals normal wall motion with ejection fraction at 67%. The findings are consistent with no clear reversible or fixed perfusion defects. NM/NM cardiolite stress test IMPRESSION: 1. Myocardial perfusion imaging study shows probably normal myocardial perfusion. 2. Gated LVEF is 67% during stress and rest. 3. Transient ischemic dilatation not present. EKG component of the test reported separately. Electronically signed by: Jorge Navarro MD 11/29/2024 12:32 PM EDT
--- NOTE | 2024-11-27 09:58 | CA_ITS ---
Acquisition Time: 2024-11-27 10:11:19 Total Exercise Time: 00:05:40 Test Indications: CP Medications: SEE H&P Protocol: TIFFANIE Max HR: 146 BPM 95% of Pred: 153 BPM Max BP: 200/90 mmHG Max Work Load: 7.0 METS Exercise stress test with exercise 5 mins 40 secs of Tiffanie Protocol, achieving 92% MPHR, with reports of mild SOB, no chest pain, with isolated PVCs, with normotensive response to exercise. Without any EKG changes meeting criteria for ischemia. In recovery, breathing returned to baseline. Nuclear images pending. Test reviewed with Dr. Navarro. Referred By: Jefe Mitchell Electronically Signed By: Veto Rowe
--- OUTSIDE RECORDS SUMMARY | 2024-11-27 10:32 | XMS_ITS | Clinical Summary ---
Author Organization [facility] Address [address] [place] [address] Phone Care Team Providers Care Supervisor Dry Cell Assembly Name Role Phone Jefe iMtchell NP Primary Care Provider + Allergies Active Allergy Reactions Criticality Noted Date Comments Cortisone 10/10/2021 Hydrocortisone 12/04/2021 Other reaction(s): Unknown [place] 10/22/2021 Medications albuterol 90 mcg/actuation inhaler 09/24/2021 [...] PPO REPLACEMENT MEDICARE PART A & B [facility] MEDICARE PART [place] & [place] MED[place] PREFERRED PPO REPLACEMENT MEDICARE PART A & B [facility] MEDICARE PART A & B [place] MED[place] PREFERRED PPO REPLACEMENT MEDICARE PART A & B [place] MED[place] PREFERRED PPO REPLACEMENT MEDICARE PART A & B [facility] MEDICARE [place] [id number] Care Teams Supervisor Dry Cell Assembly Relationship Specialty Start Date End Date Jefe Mitchell NP [address] [place] [id number] [email or web address] PCP - General Family Medicine 10/10/21 Additional Source Comments The information contained in this document represents components of the legal health record. It is not the complete legal health record.[facility]
--- OUTSIDE RECORDS SUMMARY | 2024-11-27 10:33 | XMS_ITS | Clinical Summary ---
Author Organization [facility] Address [address] [place] [address] Care Team Providers Care Planer Setup Operator Name Role Phone Unavailable Primary Care [...]
--- OUTSIDE RECORDS SUMMARY | 2024-11-27 10:33 | XMS_ITS | Patient Health Record ---
Author Organization [facility] Address [address] [place] [address] Care Team Providers Care Plumbing Assembler Name Role Phone TANYA MARI Primary Care Provider Juan Shea Unavailable [phone] Allergies Allergen (clinical drug ingredient) Drug/Non Drug [...] Problem Status W/U Status Risk Notes Problem 924799844 Encounter for screening for malignant neoplasm of colon (Z12.11) Active confirmed Problem History of adenomatous polyp of colon (373738076) History of adenomatous polyp of colon (Z86.010) Active confirmed Problem Screening for malignant neoplasm of rectum (384571780) Encounter for screening for malignant neoplasm of rectum (Z12.12) Active confirmed Problem 261470560 Family history o f colon cancer (Z80.0) Active confirmed Problem 32959311 Constipation, unspecified constipation type (K59.00) Active confirmed Problem Diverticulosis of colon (284463018) Diverticulosis of colon (K57.30) Active confirmed Plan Of Treatment Pending Test Test Name Order Date Pathology 01/09/2022 Future Test Test Name Order Date COLONOSCOPY 02/12/2011 COLONOSCOPY 06/11/2016 COLONOSCOPY 11/20/2021 Insurance Providers Payer Name Payer Address Payer Phone Subscriber Number Group Number Insured Name Patient Relationship to Insured Coverage Start Date Coverage End Date MEDICARE OF [place] [address] [facility] [place] [address] [id number] [facility] CANDELARIANENA Self - patient is the insured MEDICAID OF [facility] [address] [place] [address] [phone] [id number] COURTNEY GAONA NENA Self - patient is the insured Medical (General) History Medical History History ICD Code Negative screening colonoscopies in 2004 and on 03-17-2011 Hyperlipidemia Hypertension Denies [place],DM,CVA,renal disease Anxiety/depression--panic attacks 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
--- OUTSIDE RECORDS SUMMARY | 2024-11-27 10:33 | XMS_ITS | Patient Health Record ---
Author Organization [facility] Marsha justine Orozoc Address [address] [facility] [place] [address] Care Team Providers Care Sales And Distribution Clerk Name Role Phone Jefe Batres Primary Care Provider Unav ailable Black, Ирина Unavailable [phone] Allergies Allergen (clinical drug ingredient) Drug/Non Drug Allergy documented on EMR Reaction Allergy Type Onset Date Status Cortisone Unknown Drug Allergy Active Reason For Referral No Information Medications Medication SIG (Take, Route, Frequency, Duration) Notes Start Date End Date Status Atorvastatin Calcium 10 MG Orally Active Tolterodine Tartrate ER 4 MG (Prior Auth: Rx Ref#:[id number]) Oral; Duration: 90 Active DOK 100 MG (Prior Auth: Rx Ref#:[id number]) Oral; Duration: 30 Active Albuterol Sulfate HFA 108 (90 Base) MCG/ACT (Prior Auth: Rx Ref#:[id number]) Inhalation; Duration: 17 Active SM Calcium 600+D3 600-800 MG-UNIT (Prior Auth: Rx Ref#:[id number]) Oral; Duration: 30 Active B-12 1000 MCG (Prior Auth: Rx Ref#:[id number]) Oral; Duration: 30 Active Meloxicam 15 MG (Prior Auth: Rx Ref#:[id number]) Oral; Duration: 30 Active Metoprolol & Diet Manage Prod Active Vitamin D 2000 UNIT (Prior Auth: Rx Ref#:[id number]) Oral; Duration: 30 Active SM Aspirin Adult Low Strength 81 MG (Prior Auth: Rx Ref#:[id number]) Oral; Duration: 30 Active Metoprolol Succinate ER 50 MG (Prior Auth: Rx Ref#:[id number]) Oral; Duration: 30 Active Social History Tobacco use other than smoking: Question Answer Notes Are you an other tobacco user? No Problems No Known Problems Plan Of Treatment No Information Insurance Providers Payer Name Payer Address Payer Phone Subscriber Number Group Number Insured Name Patient Relationship to Insured Coverage Start Date Coverage End Date Medicare National Govt Svcs Inc [address] [place] [address] [id number] Fabiola livingston Gemma Self - patient is the insured 0 Medical (General) History Medical History History ICD Code Angina Back,Hip,and Knee pain Hypertension Chicken pox Cholesterol Anxiety asthma Arthritis Osteoporosis Surgical History Surgery Date(Month/Year) kidney surgery
== END ==
LOC: HO.CARD 09:55
PROVIDERS: PCP Nurse Practitioner Family; Visit Provider Nurse Practitioner Family
DX: R07.9 Chest pain, unspecified (principal)
CPT/HCPCS: 78452; 93017; A9500

== ENCOUNTER → 2024-11-27 09:58 | Outpatient (BNV) | payer MEDICARE, MEDICAID, SELFPAY | PROVIDERS: PCP Nurse Practitioner Family | DX: I49.3 Ventricular premature depolarization (principal) | CPT/HCPCS: 78452; 93016; 93018 ==

== ENCOUNTER → 2024-12-06 13:59 | Outpatient (REF) | payer MEDICARE, MEDICAID, SELFPAY ==
--- NOTE | 2024-12-06 14:03 | CA_ITS ---
Transthoracic Echocardiogram Patient (Last, First, Middle): Gemma Simeon A Gender: Female Date of : 1955 Age: 69 Procedure Date: 12/06/2024 Procedure Type: Transthoracic Echocardiogram Location: OP Height: 154.94 cm Weight: 75.3 kg BSA: 1.75 m2 Heart Rate: bpm BP: 148 / 76 mmHg Returns Clerk: TO Referring MD: Jefe Mitchlel [facility] Dot Etcher Apprentice: Gordo Prather MD Symptoms: R07.9 - Chest pain, unspecified Study Quality: Adequate w contrast ECG Rhythm: Sinus Conclusions: - 1. Normal LV ejection fraction 55-60% 2. Normal cardiac valvular Dopplers 3. Normal RV systolic pressure 4. No gross pericardial effusion Findings Procedure Information Contrast agent, definity, is being given per protocol without apparent complications. Left Ventricle Normal left ventricular size, thickness, and systolic function. The visually estimated ejection fraction is between 55-60%. Spectral Doppler is indicative of a normal filling pattern. Right Ventricle Normal right ventricular cavity size and systolic function. Atria The left atrium is normal in size. There is lipomatous hypertrophy of the interatrial septum. There is no evidence of interatrial shunt. The right atrium is normal in size. Aortic Valve Normal aortic valve structure and function. There is no aortic valve stenosis. There is no aortic valve regurgitation. Mitral Valve Normal mitral valve structure and function. There is trace mitral valve regurgitation. There is no mitral valve stenosis. Pulmonic Valve The pulmonic valve was not well visualized. Tricuspid Valve Normal tricuspid valve structure. There is trace tricuspid valve regurgitation. The right ventricular systolic pressure is normal. The right ventricular systolic pressure is 19 mmHg. Normal right atrial pressure. There is no evidence of pulmonary hypertension. Great Vessels All visible segments of the aorta are normal in size. The pulmonary artery was not well visualized. There is no dilatation of the ascending aorta measuring 3.30 cm. Venous The inferior vena cava is normal in size and collapses greater than 50% with inspiration. Pericardium/Pleural There is no evidence of pericardial effusion. Prior Study Comparison No prior study available for comparison. Measurements 2D Linear Measurements IVSd: 0.82 0.6-0.9/0.6-1.0 cm LVIDd: 4.59 3.9-5.3/4.2-5.9 cm LVIDd Index: 2.62 2.4-3.2/2.2-3.1 cm/m2 LVIDs: 2.87 2.0-3.6 cm LVPWd: 0.81 0.7-1.1 cm LA Diam: 3.60 2.7-3.8/3.0-4.0 cm LAIDs Index: 2.06 1.5-2.3 cm/m2 LV Mass: 149.70 67-162/88-224 g LV Mass Index: 85.54 43-95/49-115 g/m2 LVOT Diam: 2.00 3.0+(-)1.3 cm 2D Systolic Function EF 4C: 57.60 >55% EF 2C: 58.80 >55% EF BiP: 57.70 >55% Mitral Valve MV Pk E: 0.79 MV PK A: 0.67 MV Decel Time: 269.00 E/A: 1.20 E'Lateral: 7.51 E'Medial: 5.33 E/E' Med: 14.90 E/E' Lat: 10.60 PHT: 79.00 MVA PHT: 2.78 Decel [place]: 2.95 Aortic Valve AoV Pk Shravan: 1.62 AoV Mn Shravan: 1.04 AoV VTI: 0.36 AoV Pk Grad: 10.00 Aov Mn Grad: 5.00 SINDHU Cont.VTI: 1.88 LVOT LVOT Pk Shravan: 0.93 LVOT Mn Shravan: 0.63 LVOT VTI: 0.22 LVOT Pk Grad: 3.00 LVOT Mn Grad: 2.00 LVOT Diam: 2.00 LVOT Area: 3.14 Diastolic Function MV Pk E: 0.79 MV Pk A: 0.67 E/A: 1.20 E'Medial: 5.33 E/E' Med: 14.90 E' Laterial: 7.51 E/E' Lat: 10.60 Right Ventricle TAPSE (mm): 19.40 TVS' Shravan: 11.20 Tricuspid Valve TR Pk Shravan: 2.00 TR Pk Grad: 16.00 RA Press: 3.00 RVSP: 19.00 Great Vessels Aorta Sinus of Valsalva: 2.92 2.0-3.[address] [place]: 2.34 1.7-3.4 cm Ao Asc: 3.30 2.1-3.4 cm Updated in Other Vendor System with Status of Final Gordo Prather MD electronically signed on 12/06/2024 3:40:23 PM with status of Final
--- OUTSIDE RECORDS SUMMARY | 2024-12-06 14:21 | XMS_ITS | Patient Health Record ---
Author Organization [facility] Marsha justine Orozco Address [address] [facility] [place] [address] Care Team Providers Care Department Head Name Role Phone Jefe Batres Primary Care Provider Unav ailable Black, Ирина Unavailable [phone] Allergies Allergen (clinical drug ingredient) Drug/Non Drug Allergy documented on EMR Reaction Allergy Type Onset Date Status Cortisone Unknown Drug Allergy Active Reason For Referral No Information Medications Medication SIG (Take, Route, Frequency, Duration) Notes Start Date End Date Status Atorvastatin Calcium 10 MG Orally Active Tolterodine Tartrate ER 4 MG (Prior Auth: Rx Ref#:[id number]) Oral; Duration: 90 Active DOK 100 MG (Prior Auth: Rx Ref#:[id number]) Oral; Duration: 30 Active Albuterol Sulfate HFA 108 (90 Base) MCG/ACT (Prior Auth: Rx Ref#:[id number]) Inhalation; Duration: 17 Active SM Calcium 600+D3 600-800 MG-UNIT (Prior Auth: Rx Ref#:[id number]) Oral; Duration: 30 Active B-12 1000 MCG (Prior Auth: Rx Ref#:[id number]) Oral; Duration: 30 Active Meloxicam 15 MG (Prior Auth: Rx Ref#:[id number]) Oral; Duration: 30 Active Metoprolol & Diet Manage Prod Active Vitamin D 2000 UNIT (Prior Auth: Rx Ref#:[id number]) Oral; Duration: 30 Active SM Aspirin Adult Low Strength 81 MG (Prior Auth: Rx Ref#:[id number]) Oral; Duration: 30 Active Metoprolol Succinate ER 50 MG (Prior Auth: Rx Ref#:[id number]) Oral; Duration: 30 Active Social History Tobacco use other than smoking: Question Answer Notes Are you an other tobacco user? No Problems No Known Problems Plan Of Treatment No Information Insurance Providers Payer Name Payer Address Payer Phone Subscriber Number Group Number Insured Name Patient Relationship to Insured Coverage Start Date Coverage End Date Medicare National Govt Svcs Inc [address] [place] [address] [id number] Fabiola livingston Gemma Self - patient is the insured 0 Medical (General) History Medical History History ICD Code Angina Back,Hip,and Knee pain Hypertension Chicken pox Cholesterol Anxiety asthma Arthritis Osteoporosis Surgical History Surgery Date(Month/Year) kidney surgery
--- OUTSIDE RECORDS SUMMARY | 2024-12-06 14:21 | XMS_ITS | Clinical Summary ---
Author Organization [facility] Address [address] [place] [phone] Phone Care Team Providers Care Road Oiler Name Role Phone Jefe Mitchell NP Primary Care Provider + Allergies Active Allergy Reactions Criticality Noted Date Comments Cortisone 10/10/2021 Hydrocortisone 12/04/2021 Other reaction(s): Unknown [place] 10/22/2021 Medications albuterol 90 mcg/actuation inhaler 09/24/2021 [...] PPO REPLACEMENT MEDICARE PART A & B [facility] MEDIC[facility] PART [place] & [place] PREFERRED PPO REPLACEMENT MEDICARE PART A & B [facility] MEDICARE PART [place] & [place] PREFERRED P[place] REPLAC[place] [facility] MEDICARE PREFERRED PPO REPLACEMENT MEDICARE PART A & B [facility] MEDICARE PREFERRED PPO REPLACEMENT Care Teams Road Oiler Relationship Specialty Start Date End Date Jefe Mitchell NP [address] [place] [address] PCP - General Family Medicine 10/10/21 Additional Source Comments The information contained in this document represents components of the legal health record. It is not the complete legal health record.[facility]
--- OUTSIDE RECORDS SUMMARY | 2024-12-06 14:21 | XMS_ITS | Patient Health Record ---
Author Organization [facility] Address [address] [place] [address] Care Team Providers Care Frame Carver Spindle Name Role Phone TANYA MARI Primary Care Provider Juan Shea Unavailable [phone] Allergies Allergen (clinical drug ingredient) Drug/Non Drug [...] Problem Status W/U Status Risk Notes Problem [id number] Encounter for screening for malignant neoplasm of colon (Z12.11) Active confirmed Problem History of adenomatous polyp of colon (119601880) History of adenomatous polyp of colon (Z86.010) Active confirmed Problem Screening for malignant neoplasm of rectum (314104481) Encounter for screening for malignant neoplasm of rectum (Z12.12) Active confirmed Problem 560520430 Family history o f colon cancer (Z80.0) Active confirmed Problem 27885649 Constipation, unspecified constipation type (K59.00) Active confirmed Problem Diverticulosis o f colon (K57.30) Active confirmed Plan Of Treatment Pending Test Test Name Order Date Pathology 01/09/2022 Future Test Test Name Order Date COLONOSCOPY 02/12/2011 COLONOSCOPY 06/11/2016 COLONOSCOPY 11/20/2021 Insurance Providers Payer Name Payer Address Payer Phone Subscriber Number Group Number Insured Name Patient Relationship to Insured Coverage Start Date Coverage End Date MEDICARE OF [place] [address] [place] [id number] COURTNEY GAONA NENA Self - patient is the insured MEDICAID OF [facility] [address] [place] [address] [phone] [id number] COURTNEY GAONA NENA Self - patient is the insured Medical (General) History Medical History History ICD Code Negative screening colonoscopies in 2004 and on 03-17-2011 Hyperlipidemia Hypertension Denies MT,DM,CVA,renal disease Anxiety/depression--panic attacks 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
--- OUTSIDE RECORDS SUMMARY | 2024-12-06 14:21 | XMS_ITS | Clinical Summary ---
Author Organization [email or web address] [facility] Address [address] [address] [place] [address] Care Team Providers Care Liaison Inspection Laboratory Assistant Name Role Phone Unavailable Primary Care Provider [...]
== END ==
LOC: HO.CARD 13:59
PROVIDERS: PCP Nurse Practitioner Family; Visit Provider Nurse Practitioner Family
DX: R07.9 Chest pain, unspecified (principal)
CPT/HCPCS: 93306; Q9957

== ENCOUNTER → 2024-12-06 14:03 | Outpatient (BNV) | payer MEDICARE, MEDICAID, SELFPAY | PROVIDERS: PCP Nurse Practitioner Family; Visit Provider Internal Medicine Cardiovascular Disease | DX: R07.9 Chest pain, unspecified (principal) | CPT/HCPCS: 93306 ==

== ENCOUNTER 2025-03-09 11:02 | Outpatient (REF) | payer MEDICARE, SELFPAY ==
[2025-03-09 13:12] LABS: MANUAL DIFF FLAG NO
[2025-03-09 13:27] LABS: Hematocrit 42.5 % (37.0-47.0); Hemoglobin 14.1 g/dl (12.0-16.0); Imm Gran Abs Auto 0.02 X10*3/uL (0.00-0.03); Imm Gran Pct Auto 0.3 % (0.0-0.4); Lymphocytes Absolute Auto 3.4 X10*3/uL (1.2-4.9); Mean Corpuscular HGB Conc 33.2 g/dl (31.0-35.0); Mean Corpuscular Hemoglobin 31.6 pg (27.0-33.0); Mean Corpuscular Volume 95.3 fL (80.0-98.0); NRBC Abs Auto 0.000 X10*3/uL (0.0-0.012); NRBC Pct Auto 0.0 /100WBC (0.0-0.2); Platelet Count 288 X10*3/uL (160-400); Red Blood Count 4.46 X10*6/uL (4.20-5.50); White Blood Count 6.5 X10*3/uL (4.8-10.8)
[2025-03-09 13:55] LABS: Alanine Aminotransferase 24 U/L (0-31); Albumin Level 4.5 g/dL (3.5-5.0); Alkaline Phosphatase 84 U/L (39-117); Anion Gap 13 (12-20); Aspartate Amino Transferase 22 U/L (5-31); Blood Urea Nitrogen 21 mg/dL (9-16); Calcium 9.7 mg/dL (8.4-10.2); Carbon Dioxide 25 mmol/L (22-29); Chloride 108 mmol/L (96-108); Cholesterol 169 mg/dL (<200); Estimated Glomerular Filt Rate > 60; HDL Cholesterol 53 mg/dL (>40); Potassium 4.0 mmol/L (3.3-5.1); Sodium 142 mmol/L (135-145); Total Protein 7.4 g/dL (6.5-8.0); Triglycerides 93 mg/dL (<150)
[2025-03-09 14:44] LABS: Folate 12.0 ng/mL (> or = 4.0); Vitamin B12 304 pg/mL (200-900)
[2025-03-09 16:12] LABS: Appearance Urine Clear; Glucose Urine UA Negative (Negative); PH 5.5 (5.0-9.0); Specific Gravity - Urine 1.015 (1.005-1.025); UMIC TRIGGER UACC YES
== END 2025-03-09 11:03 | disposition home or self-care (01) ==
LOC: HO.HMGCLDS 11:02
PROVIDERS: PCP Nurse Practitioner Family; Visit Provider Nurse Practitioner Family
DX: I10 Essential (primary) hypertension (principal); E55.9 Vitamin D deficiency, unspecified; E53.8 Deficiency of other specified B group vitamins
CPT/HCPCS: 36415; 80053; 80061; 81001; 82306; 82607; 82746; 84443; 85025

== ENCOUNTER 2025-03-14 08:55 | Outpatient (AMB) | payer MEDICARE, MEDICAID, SELFPAY ==
--- NOTE | 2025-03-14 09:05 | A.OFFVIS_ITS ---
Intake Vital Signs 03/14/25 09:09 Height 5 ft 1 in Weight 163 lb BMI 30.8 BP 142/88 H Blood Pressure Location Lt brachial Position Sitting Respiration 16 Pulse 57 Pulse Source Pulse Oximeter Pulse Oximetry (%) 97 Oxygen Delivery Method Room Air Intake Visit Reasons: Flaquito G0439 Piling Cutter Required: No Accompanied by: Self / Same As Patient Allergies cortisone (CORTISONE) Allergy (Intermediate, Verified 03/14/25 09:18) HIVES hydrocortisone (Cortizone-10) Allergy (Unknown, Verified 03/14/25 09:18) hives Strawberries Allergy (Unknown, Uncoded 03/14/25 09:18) anaphylaxis Medication List - Last Reconciled 03/14/25 by DORYS Yu-REMY albuterol sulfate 90 mcg/actuation 2 puffs inhalation Q4H PRN 30 days aspirin 81 mg PO DAILY atorvastatin 20 mg PO DAILY buspirone 10 mg (2 x 5 mg) PO BID 90 days calcium carbonate 600 mg PO BID cholecalciferol (vitamin D3) 50 mcg PO DAILY ciprofloxacin HCl 0.2% (Cetraxal) 5 drps otic (ear) left Q12H docusate sodium 100 mg PO DAILY epinephrine 0.3 mL IM DIRECTED hydroxyzine HCl 10 mg PO QID PRN latanoprost 0.005% drps ophthalmic (eye) loratadine 10 mg PO DAILY PRN 30 days meloxicam 15 mg PO DAILY PRN metoprolol succinate ER 50 mg PO DAILY pseudoephedrine HCl (Sudafed) 30 mg PO Q4-6H PRN HPI SWV G0439 HPI Details AWV: PPP in scan pile, CCC in scan pile HPI Comments History of Present Illness Details HTN: denies any cp, sob, sarabia, blurred vision. Reports having elevated BP at home as well. Will increase her BB. WIll cont to monitor at home PFSH Medical History Hx of glaucoma Right knee pain Polyp of left ear canal Hypertension Surgical History H/O: hysterectomy History of partial hysterectomy History of kidney surgery History of tonsillectomy Family History Father Stomach cancer Hypertension Mother Colon cancer Mental health disorder Son Mental health disorder Social History Housing: Apartment Alcohol intake: never Patient Tobacco Use Status: Never used Tobacco service: No Current occupational status: retired 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 Reproductive History Menstrual Age of Menarche: 17 Questionnaire Medicare Wellness Checkup What [age] What gender do you identify with?: female During the past 4 weeks, how much have you been bothered by emotional problems such as feeling anxious, depressed, irritable, sad or downhearted, and blue?: extremely During the past 4 weeks, has your physical & emotional health limited your social activities with family, friends, neighbors, or groups?: quite a bit During the past 4 weeks, how much bodily pain have you generally had?: severe pain During the past 4 weeks, was someone available to help you if you needed & wanted help?: yes, some During the past 4 weeks, what was the hardest physical activity you could do for at least 2 minutes?: very heavy Can you get to places out of walking distance without help? (For eg., can you travel alone on buses, taxis or drive your car?): No Can you go shopping for groceries or clothes without someone's help?: No Can you prepare your own meals?: Yes Can you do your housework without help?: No Because of any health problems, do you need the help of another person with your personal care needs such as eating, bathing, dressing or getting around the stephanie se?: Yes Can you handle your own money without help?: Yes During the past 4 weeks, how would you rate your health in general?: fair During the past 4 weeks how have things been going for you?: good & bad parts about equal Are you having difficulties driving your car?: yes, often Do you always fasten your seat belt when you are in a car?: yes, usually During past 4 weeks, have you been bothered by the following: never: Problems using the telephone?, sometimes: Trouble eating well?, often: Falling or dizzy when standing up, Sexual problems? and Teeth or denture problems? and always: Tiredness or fatigue? Have you fallen 2 or more times in the past year?: Yes Are you afraid of falling?: Yes Are you a smoker?: no During the past 4 weeks, how many drinks of wine, beer, or other alcoholic beverages did you have?: no alcohol at all Do you exercise for about 20 minutes 3 or more times a week?: no, I usually do not exercise this much Have you been given information to help with the following?: yes: Hazards in your house that might hurt you? and yes: Keeping track of your medications? How often do you have trouble taking medicines the way you have been told to take them?: sometimes I take medicine as prescribed How confident are you that you can control & manage most of your health problems?: somewhat confident What is your race?: White Mini Mental State Exam (MMSE) Orientation What is the (year) (season) (date) (day) (month)?: year, season, date, day and month Where are we (state) (county) (town or city) (hospital) (floor)?: state, county, town or city, hospital/clinic and floor Registration Name of 3 unrelated objects clearly and slowly, then ask patient to repeat all 3 of them. (1st repeat determines score. Make sure they can repeat all three): object 1, object 2 and object 3 Attention & Calculation (CHOOSE ONE) Spell WORLD backwards (DLROW): 5 letters Recall Ask patient to repeat the 3 items from question #3.: object 1, object 2 and object 3 Language Show patient a wristwatch & ask what it is. Repeat for pencil.: watch and pencil Ask the patient to repeat the phrase 'No ifs, ands, or buts' after you.: correct Ask the patient to 'take a piece of paper with their right hand' 'fold paper in half' 'place paper on floor': take paper in right hand, fold paper in half and place paper on floor Print the sentence 'CLOSE YOUR EYES' on a piece. If patient actually closes eyes then score.: followed written direction Give patient a blank piece of paper & ask to write a sentence. Score if it contains a noun & verb.: sentence contains subject and verb Ask patient to copy figure of intersecting pentagons exactly. Score if all 10 angles & 2 intersects are included.: all 10 angles present & 2 are intersected Score Score: 30 Activity of Daily Living Bathing - sponge bath, tub bath or shower: receives no assistance (gets in/out by self, if usual bathing means Dressing - getting clothes from closets & drawers, including inner/outer garments & fasteners.: gets clothes & gets completely dressed without help Toileting - going to the 'toilet room' for urine/bowel elimination & cleaning self/arranging clothes: goes to toilet room, cleans self, arranges clothes without help Transfer: moves in & out of bed and chair without help (may use support object) Continence: controls urination/bowel movements completely by self Feeding: feeds self without help Total Score: 0 Information obtained from: patient Using telephone: independent Traveling: independent Shopping: independent Preparing meals: independent Housework: independent Taking medicine: independent Managing money: independent PHQ-9 Over the last 2 weeks, how often have you been bothered by any of the following problems? 1. Little interest or pleasure in doing things: more than half the days 2. Feeling down, depressed, or hopeless: more than half the days 3. Trouble falling or staying asleep, or sleeping too much: nearly every day 4. Feeling tired or having little energy: nearly every day 5. Poor appetite or overeating: more than half the days 6. Feeling bad about yourself - or that you are a failure or have let yourself or your family down: not at all 7. Trouble concentrating on things, such as reading the newspaper or watching television: nearly every day 8. Moving or speaking so slowly that other people could have noticed. Or the opposite - being so fidgety or restless that you have been moving around a lot more than usual: more than half the days 9. Thoughts that you would be better off or of hurting yourself in some way: not at all Total score: 17 Depression Screening Interpretation: Positive (denies any si or hi) Depression Screening Follow-up: Existing condition and Declines treatment Depression Screening Done: Yes 74759 - PHQ-9 Billing: Yes Source: Developed by Drs. Juan Garcia, Belen Calloway, Cem Garcia and colleagues, with an educational marcy from [employer]. Physical Exam Vital Signs: Last Vital Signs Pulse 57 03/14/25 09:09 Resp 16 03/14/25 09:09 BP 142/88 H 03/14/25 09:09 Pulse Ox 97 03/14/25 09:09 Oxygen Delivery Method Room Air 03/14/25 09:09 BMI result Body Mass Index 30.8 Neuro Other: able to stand from sitting position, able to tandem walk, neg rhomberg, passed whisper test Assessment & Plan Assessment & Plan (1) Encounter for annual wellness visit (AWV) in Medicare patient: Code(s): Z00.00 - Encounter for general adult medical examination without abnormal findings (2) Hypertension: Comment: stable Code(s): I10 - Essential (primary) hypertension Plan . Medications: Changed From metoprolol succinate ER 50 mg PO DAILY 90 tabs 1RF To metoprolol succinate ER 50 mg PO BID 180 tabs 1RF 90 days Quality Reporting (2019) Depression/Bipolar (159/160/161/177) PHQ-9: Total score: 17 Coding Level of Care Code Medicare Subsequent (G0439) Est Pt Level 3 (41692) Diagnoses Encounter for annual wellness visit (AWV) in Medicare patient Z00.00 Hypertension I10 CPT Codes Advance Care Planning - Time spent: 1-15 minutes, on File ([id number]) Additional Codes PHQ-9 - 17959 - PHQ-9 Billing: Yes ([id number]) Advance Care Planning Forms completed: Health Care Proxy (will bring in copy), MOLST (will bring in copy) and Living will (done according to pt) Time spent: 1-15 minutes, on File Actual minutes spent: 8
[2025-03-14 09:09] VITALS: BP 142/88; PULSE 57; RESP 16; O2SAT 97; BMI 30.8
--- OUTSIDE RECORDS SUMMARY | 2025-03-14 16:34 | XMS_ITS | Encounter Summary ---
Author Organization [facility] Address [address] [facility] [address] [place] [address] Care Team Providers Care Floor Inspector Name Role Phone Unavailable Primary Care Provider Unavailabl e Encounter Details Date Type Department Care Team (Latest Contact Info) Description 01/25/2019 Abstract [facility] CONVERSIONS Dental, Provider, DDS Social History [...]
--- OUTSIDE RECORDS SUMMARY | 2025-03-14 16:34 | XMS_ITS | Clinical Summary ---
Author Organization [facility] Address [address] [place] [address] Phone Care Team Providers Care Forestry Consultant Name Role Phone Jefe Mitchell INSTRUCTIONAL MEDIA SERVICES TECHNICIAN Primary Care Provider + Allergies Active Allergy Reactions Criticality Noted Date Comments Cortisone 10/10/2021 Hydrocortisone 12/04/2021 Other reaction(s): Unknown [place] 10/22/2021 Medications albuterol 90 mcg/actuation inhaler 09/24/2021 Active atorvastatin (LIPITOR) 20 MG tablet 10/21/2021 Active busPIRone (BUSPAR) 5 MG tablet 10/21/2021 Active meloxicam (MOBIC) 15 MG tablet 10/12/2021 Active Encounters Date Type Department Care Team Description 01/12/2025 11:45 AM EDT Office Visit [facility] [address] [place] [id number] Christa Killian MD Primary localized osteoarthritis of knee (Primary Dx); Pain 01/12/2025 11:44 AM EDT - 01/12/2025 11:59 PM EDT Hospital Encounter [address] [address] Christa Killian MD Discharge Disposition: Home or Self Care from Last 3 Months Social History Tobacco Use Types Packs/Day Years [...] 2006 OSTEOPOROSIS SCREENING INITI AL (ONE-TIME) 2021 INFLUENZA VACCINE (#1) 2024 COVID-19 VACCINE (4 - 2024-2 6 season) 2024 05/10/2021, 06/28/2020, 05/31/2020 RSV VACCINE (1 - [...] this topic Medical Devices Not on file Procedures Procedure Name Priority Date/Time Associated Diagnosis Comments XR KNEE 1-2 VIEWS (BILATERAL) Routine 01/12/2025 11:58 AM EDT Primary localized osteoarthritis of knee from Last 3 Months Results * XR KNEE 1-2 VIEWS (BILATERAL) (01/12/2025 11:58 AM EDT) Narrative SYSTEMGENERATED, DOCUMENTATION - 01/12/2025 11:58 AM EDT This image report has been auto-finalized and has not been read by a Radiologist. Interpretation has been included in the provider encounter note for this date of service. Christa Killian MD IMG XR LOWER EXTREMITY Fi nal Result from Last 3 Months Insurance MEDICARE PART A & B Member Subscriber Plan / Payer (Ef fective 2017-Present) Name:Gemma Simeon Member ID:[id number] Relation to Subscriber:Self Name:Gemma Simeon Subscriber ID:[id number] Payer ID:[id number] Group ID:Not on file Type:Medicare Address: [facility]it [facility] [address] [place] [address] [facility] MEDICARE PREFERRED PPO REPLACEMENT MEDICARE PART A & B [facility] MEDICARE PREFERRED PPO REPLACEMENT MEDICARE PART A & B HEALTH MEDICARE PART A & B HEALTH MEDICARE PART A & B [facility] MEDICARE PREFERRED PPO REPLACEMENT MEDICARE PART A & B [place] MED[place] PREFERRED PPO REPLACEMENT MEDICARE PART A & B [facility] MEDICARE PREFERRED PPO REPLACEMENT MEDICARE PART A & B [facility] MEDICARE PREFERRED PPO REPLACEMENT Care Teams Forestry Consultant Relationship Specialty Start Date End Date Jefe Mitchell NP [address] [place] [address] PCP - General Family Medicine 10/10/21 Additional Source Comments The information contained in this document represents components of the legal health record. It is not the complete legal health record.[facility]
--- OUTSIDE RECORDS SUMMARY | 2025-03-14 16:34 | XMS_ITS | Patient Health Record ---
[facility] Organization [facility] Address [address] [place] [address] Care Team Providers Care Receptionist Secretary Name Role Phone TANYA MARI Primary Care Provider Juan Shea Unavailable [phone] Allergies Allergen (clinical drug ingredient) Drug/Non Drug Allergy documented on EMR Reaction Allergy Type Onset Date Status cortizone injections (uncoded) Unknown Allergy Active strawberry allergenic extract strawberries (uncoded) Unknown Allergy Activ e hydrocortisone Hydrocortisone Unknown Drug Allergy Active Reason For Referral No Information Medications Medication SIG (Take, Route, Frequency, Duration) Notes Start Date End Date Status Docusate Sodium 100 MG Capsule 1 capsule as needed Orally Once a day; Duration: 30 day(s) Active Ibuprofen 800 MG Tablet 1 tablet Orally twice a day as needed Active Calcium Carbonate 600 MG Tablet as directed Orally Active EpiPen 2-Shmuel 0.3 MG/0.3ML Solution Auto-injector 1 Injection use as directed/prn Active ProAir HFA 108 (90 Base) MCG/ACT Aerosol Solution 2 puffs as needed Inhalation every 4 hrs as needed Active Vitamin B-12 ER 1000 MCG Tablet Extended Release 1 tablet Orally Once a day; Duration: 30 day(s) Active traMADol HCl 50 MG Tablet 1 tablet as ne eded Orally prn Active Aspirin 81 MG Tablet Chewable 1 tablet Orally Once a day Active Atorvastatin Calcium 20 MG Tablet 1 tablet Orally Once a day Active Metoprolol Succinate ER 50 MG Tablet Extended Release 24 Hour 1 tablet Orally Once a day Active Albuterol Sulfate HFA 108 (90 Base) MCG/ACT Aerosol Solution Inhalation; Duration: 30 Act caleb Meloxicam 15 MG Tablet 1 tablet Orally O nce a day Active busPIRone HCl 5 MG Tablet 2 tablet Orall y twice a day Active Vitamin D3 2000 UNIT Capsule 1 capsule Orally Once a day Active Tolterodine Tartrate ER 4 MG Capsule Extended Release 24 Hour 1 capsule Orally Once a day Active Immunizations Vaccine Route Administration Date Status Comme nts Influenza Unknown 11/20/2021 Refused Social History Social History Additional Details Category Social Info Options Details Miscellaneous: Marital status: Engaged 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 Section Notes: Nonsmoker; no sig alcoohol Nonsmoker; no sig alcoohol Problems Problem Type SNOMED Code ICD Code Onset Dates Problem Status W/U Status Risk Notes Problem Screening for malignant neoplasm of colon (112354958) Encounter for screening for malignant neoplasm of colon (Z12.11) Active confirmed Problem History of adenomatous polyp of colon (774510632) History of adenomatous polyp of colon (Z86.010) Active confirmed Problem Screening for malignant neoplasm of rectum (823458792) Encounter for screening for malignant neoplasm of rectum (Z12.12) Active confirmed Problem Family History of Cancer of Colon (Situation) (731031883) Family history of colon cancer (Z80.0) Active confirmed Problem Constipation (95711604) Constipation, unspecified constipation type (K59.00) Active confirmed Problem Diverticulosis of colon (923835282) Diverticulosis of colon (K57.30) Active confirmed Plan Of Treatment Pending Test Test Name Order Date Pathology 01/09/2022 Future Test Test Name Order Date COLONOSCOPY 02/12/2011 COLONOSCOPY 06/11/2016 COLONOSCOPY 11/20/2021 Insurance Providers Payer Name Payer Address Payer Phone Subscriber Number Group Number Insured Name Patient Relationship to Insured Coverage Start Date Coverage End Date MEDICARE OF [place] [address] [place] [id number] [phone] [id number] COURTNEY GAONA NENA Self - patient is the insured MEDICAID OF [facility] [address] [place] [address] [phone] [id number] NENA LAUGHLIN Self - patient is the insured Medical (General) History Medical History History ICD Code Negative screening colonoscopies in 2004 and on 03-17-2011 Hyperlipidemia Hypertension Denies [place],DM,CVA,renal disease Anxiety/depression--panic attacks 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
--- OUTSIDE RECORDS SUMMARY | 2025-03-14 16:34 | XMS_ITS | Clinical Summary ---
Author Organization [employer] Address [address] [place] [address] Care Team Providers Care Pony Edger Name Role Phone Unavailable Primary Care Provider [...] of 2) 2006 COVID-19 Vaccine ( - 2024-2 6 season) 2024 Influenza Vaccine (#1) 2024 RSV Patients and [...]
--- OUTSIDE RECORDS SUMMARY | 2025-03-14 16:35 | XMS_ITS | Patient Health Record ---
Author Organization [facility] Marsha justine Orozco Address [address] [place] [address] Care Team Providers Care Licensed Nursing Assistant Name Role Phone Jefe Batres Primary Care Provider Unav ailable Black, Ирина Unavailable [phone] Allergies Allergen (clinical drug ingredient) Drug/Non Drug Allergy documented on EMR Reaction Allergy Type Onset Date Status Cortisone Unknown Drug Allergy Active Reason For Referral No Information Medications Medication SIG (Take, Route, Frequency, Duration) Notes Start Date End Date Status Atorvastatin Calcium 10 MG Orally Active Tolterodine Tartrate ER 4 MG (Prior Auth: Rx Ref#:[id number]) Oral; Duration: 90 Active DOK 100 MG (Prior Auth: Rx Ref#:[id number]) Oral; Duration: 30 Active Albuterol Sulfate HFA 108 (90 Base) MCG/ACT (Prior Auth: Rx Ref#:[id number]) Inhalation; Duration: 17 Active SM Calcium 600+D3 600-800 MG-UNIT (Prior Auth: Rx Ref#:[id number]) Oral; Duration: 30 Active B-12 1000 MCG (Prior Auth: Rx Ref#:[id number]) Oral; Duration: 30 Active Meloxicam 15 MG (Prior Auth: Rx Ref#:[id number]) Oral; Duration: 30 Active Metoprolol & Diet Manage Prod Active Vitamin D 2000 UNIT (Prior Auth: Rx Ref#:[id number]) Oral; Duration: 30 Active SM Aspirin Adult Low Strength 81 MG (Prior Auth: Rx Ref#:[id number]) Oral; Duration: 30 Active Metoprolol Succinate ER 50 MG (Prior Auth: Rx Ref#:[id number]) Oral; Duration: 30 Active Social History Tobacco use other than smoking: Question Answer Notes Are you an other tobacco user? No Problems No Known Problems Plan Of Treatment No Information Insurance Providers Payer Name Payer Address Payer Phone Subscriber Number Group Number Insured Name Patient Relationship to Insured Coverage Start Date Coverage End Date Medicare National [employer] [address] [place] [address] [id number] Fabiola [place] Gemma Self - patient is the insured 0 Medical (General) History Medical History History ICD Code Angina Back,Hip,and Knee pain Hypertension Chicken pox Cholesterol Anxiety asthma Arthritis Osteoporosis Surgical History Surgery Date(Month/Year) kidney surgery
== END 2025-03-14 09:33 | disposition home or self-care (01) ==
LOC: HO.HMCC 08:56
PROVIDERS: PCP Nurse Practitioner Family; Visit Provider Nurse Practitioner Family
DX: Z00.00 Encounter for general adult medical examination without abnormal findings (principal); I10 Essential (primary) hypertension; Z23 Encounter for immunization

== ENCOUNTER → 2025-03-14 08:55 | Outpatient (BNVA) | payer MEDICARE, SELFPAY | PROVIDERS: PCP Nurse Practitioner Family; Visit Provider Nurse Practitioner Family | DX: Z00.00 Encounter for general adult medical examination without abnormal findings (principal); Z23 Encounter for immunization; I10 Essential (primary) hypertension | CPT/HCPCS: 90471; 90715; 96127 ==